=== PATIENT | female | born 1960 | race Caucasian/White ===

== ENCOUNTER 2017-02-01 05:51 | Inpatient (IN) | payer BC ==
[~2017-02-01 05:51] MED LIST: Lactated Ringers 1,000 ML IV SCH; Lidocaine 1%/Sod Bicarbonate in NS 8.4% 1 ML Syringe IV PRN; Sodium Chloride 0.9% 10 ML Syringe FLUSH PRN
[2017-02-01] MEDS ORDERED: Bisacodyl 5 MG Tab PO PRN (06:35)
[2017-02-01] MEDS ORDERED: diphenhydrAMINE 50 MG/ML SDV IVPUSH PRN (06:35)
[2017-02-01] MEDS ORDERED: Magnesium Hydroxide 400 MG/5 ML Susp 30 ML Cup PO PRN (06:35)
[2017-02-01] MEDS ORDERED: Docusate Sodium 100 MG Cap PO PRN (06:35)
[2017-02-01] MEDS ORDERED: Naloxone 0.4 MG/ML SDV IVPUSH PRN (06:35)
[2017-02-01] MEDS ORDERED: Morphine 2 MG/ML Syringe IVPUSH PRN (06:35)
[2017-02-01] MEDS ORDERED: Sennosides 8.6 MG Tab PO PRN (06:35)
[2017-02-01] MEDS ORDERED: Ondansetron 4 MG/2 ML SDV IVPUSH PRN (06:35)
[2017-02-01] MEDS ORDERED: Cyclobenzaprine 10 MG Tab PO PRN (06:35)
[2017-02-01] MEDS ORDERED: EPINEPHrine 1 MG/ML SDV ONE (06:41)
[2017-02-01] MEDS ORDERED: Ropivacaine 0.5% 5 MG/ML 30 ML SDV ONE (06:41)
[2017-02-01] MEDS ORDERED: Propofol 200 MG/20 ML SDV ONE (06:45)
[2017-02-01] MEDS ORDERED: Rocuronium 50 MG/5 ML Vial ONE (06:45)
[2017-02-01] MEDS ORDERED: Ondansetron 4 MG/2 ML SDV ONE (06:45)
[2017-02-01] MEDS ORDERED: Midazolam 1 MG/ML 2 ML SDV ONE (06:45)
[2017-02-01] MEDS ORDERED: ceFAZolin 2 GM in Premix Bag 1 BAG IV SCH (06:45)
[2017-02-01] MEDS ORDERED: fentaNYL 100 MCG/2 ML SDV ONE (06:45)
[2017-02-01] MEDS ORDERED: Lidocaine 1% 4 ML ONE (06:46)
[2017-02-01] MEDS ORDERED: Lidocaine 1% 2 ML ONE (06:49)
[2017-02-01] MEDS ORDERED: ceFAZolin 1 GM Vial ONE (06:49)
--- NOTE | 2017-02-01 07:12 | PCM.PREANE ---
Preanesthetic Assessment - Anesthesia/Transfusion/Family Hx Anesthesia History: Prior Anesthesia Without Reaction Family History of Anesthesia Reaction: No Transfusion History: No Prior Transfusion(s) - Review of Systems General: No Symptoms Pulmonary: No Symptoms Cardiovascular: No Symptoms Gastrointestinal: No Symptoms Neurological: No Symptoms Other: Reports: None - Physical Assessment NPO Status Date: 01/31/17 NPO Status Time: 00:00 Pulse: 51 O2 Sat by Pulse Oximetry: 97 Respiratory Rate: 16 Blood Pressure: 138/66 Temperature: 37.2 C Height: 1.68 m Weight: 74.5 kg ASA Class: 2 Mental Status: Alert & Oriented x3 Airway Class: Mallampati = 1 Dentition: Reports: Normal Dentition Thyro-Mental Finger Breadths: 3 Mouth Opening Finger Breadths: 3 ROM/Head Extension: Full Lungs: Clear to Auscultation, Normal Respiratory Effort Cardiovascular: Regular Rate, Regular Rhythm, No Murmurs - Lab Values: Laboratory Last Values MRSA (PCR) Negative 01/27/17 11:24 - Imaging/EKG Impressions: sinus thomas - Allergies Allergies/Adverse Reactions: Allergies Allergy/AdvReac Type Severity Reaction Status Date / Time acyclovir Allergy Nausea and Verified 01/29/17 15:42 Vomiting - Anesthesia Plan Pre-Op Medication Ordered: None - Acknowledgements Anesthesia Type Planned: General Anesthesia, Regional Block (interscalene block right shoulder for post-op pain control request per Dr. Garcia) Pt an Appropriate Candidate for the Planned Anesthesia: Yes Alternatives and Risks of Anesthesia Discussed w Pt/Guardian: Yes Pt/Guardian Understands and Agrees with Anesthesia Plan: Yes PreAnesthesia Questionnaire HEENT History: Reports: None, Impaired Vision, Other (See Below) Other HEENT History: wears glasses Cardiovascular History: Reports: None Respiratory History: Reports: None Gastrointestinal History: Reports: GERD, Hemorrhoids [employer] History: Reports: Musculoskeletal History: Reports: Other (See Below) Other Musculoskeletal History: hallux rigidus Neurological History: Reports: None Psychiatric History: Reports: None Endocrine/Metabolic History: Reports: None Hematologic History: Reports: None Immunologic History: Reports: None Oncologic (Cancer) History: Reports: None Dermatologic History: Reports: Other (See Below) Other Dermatologic History: cold sores - Past Surgical History Cardiovascular Surgical History: Reports: None Respiratory Surgical History: Reports: None GI Surgical History: Reports: None Female Surgical History: Reports: Endometrial Ablation, Tubal Ligation Male Surgical History: Reports: None Endocrine Surgical History: Reports: None Neurological Surgical History: Reports: None Oncologic Surgical History: Reports: None - SUBSTANCE USE Smoking Status *Q: Former Smoker Tobacco Use Within Last Twelve Months: No Second Hand Smoke Exposure: No Days Per Week of Alcohol Use: 1 Number of Drinks Per Day: 0 Total Drinks Per Week: 0 Recreational Drug Use History: No - HOME MEDS Home Medications: Home Meds Diclofenac Sodium [Voltaren 1% Gel] 1 applic TOP TID PRN 01/29/17 [History] Naproxen Sodium [Aleve] 1 - 2 tab PO BID PRN 01/29/17 [History] - CURRENT (IN HOUSE) MEDS Current Meds: Current Medications Aspirin (Ecotrin) 325 mg PO BID [place]IL[place] Bisacodyl (Dulcolax) 5 mg PO DAILY PRN PRN Reason: Constipation Cyclobenzaprine HCl (Flexeril) 10 mg PO TID PRN PRN Reason: Spasms Diphenhydramine HCl (Benadryl) 25 mg IVPUSH Q4H PRN PRN Reason: Nausea Docusate Sodium (Colace) 100 mg PO BID PRN PRN Reason: Constipation Famotidine (Pepcid) 20 mg PO Q12H [facility] Lactated Ringer's (Ringers, Lactated) 1,000 mls @ 125 mls/hr IV ASDIRECTED [facility] Cefazolin Sodium/Dextrose 2 gm (/ Premix) 50 mls @ 100 mls/hr IV Q8H [facility] Stop: 02/01/17 23:14 Ketorolac Tromethamine (Toradol) 15 mg IVPUSH Q6H PRN PRN Reason: Pain Lidocaine/Sodium Bicarbonate (Buffered Lidocaine 1% In Ns 8.4%) 0.25 ml IV ONETIME PRN PRN Reason: Prior to IV Start Magnesium Hydroxide (Milk Of Magnesia) 30 ml PO BID PRN PRN Reason: Constipation Morphine Sulfate (Morphine) 2 mg IVPUSH Q2H PRN PRN Reason: Breakthrough Pain Naloxone HCl (Narcan) 0.1 mg IVPUSH Q5M PRN PRN Reason: Oversedation Ondansetron HCl (Zofran) 4 mg IVPUSH Q6H PRN PRN Reason: Nausea/Vomiting Oxycodone/Acetaminophen (Percocet 325-5 Mg) 1 - 2 tab PO Q4H PRN PRN Reason: Pain Senna (Senna) 8.6 mg PO BID PRN PRN Reason: Constipation Sodium Chloride (Saline Flush) 10 ml FLUSH ASDIRECTED PRN PRN Reason: Keep Vein Open Discontinued Medications Cefazolin Sodium (Ancef) Confirm Administered Dose 2 gm .ROUTE .STK-MED ONE Stop: 02/01/17 06:50 Epinephrine HCl (Adrenalin 1:1000) Confirm Administered Dose 1 mg .ROUTE .STK- MED ONE Stop: 02/01/17 06:42 Fentanyl (Sublimaze) Confirm Administered Dose 100 mcg .ROUTE .STK-MED ONE Stop: 02/01/17 06:46 Lidocaine HCl (Xylocaine-Mpf 1%) Confirm Administered Dose 4 mls @ as directed .ROUTE .STK-MED ONE Stop: 02/01/17 06:47 Lidocaine HCl (Xylocaine-Mpf 1%) Confirm Administered Dose 2 mls @ as directed .ROUTE .STK-MED ONE Stop: 02/01/17 06:50 Midazolam HCl (Versed 1 Mg/Ml) Confirm Administered Dose 2 mg .ROUTE .STK-MED ONE Stop: 02/01/17 06:46 Ondansetron HCl (Zofran) Confirm Administered Dose 4 mg .ROUTE .STK-MED ONE Stop: 02/01/17 06:46 Propofol (Diprivan 20 Ml) Confirm Administered Dose 200 mg .ROUTE .STK-MED ONE Stop: 02/01/17 06:46 Rocuronium [place] (Zemuron) Confirm Administered Dose 50 mg .ROUTE .STK-MED ONE Stop: 02/01/17 06:46 Ropivacaine (Naropin 0.5%) Confirm Administered Dose 30 ml .ROUTE .STK-MED ONE Stop: 02/01/17 06:42
[2017-02-01] MEDS ORDERED: Triamcinolone Acetonide 40 MG/ML 1 ML MDV ONE (07:26)
[2017-02-01] MEDS ORDERED: Iodine/Sodium Iodide 2% Tincture 30 ML Bottle ONE (07:27)
--- NOTE | 2017-02-01 08:02 | PCM.SN ---
- Free Text/Narrative Note: Note: 02/01/2017 0759 130/78 52 97% 16 Surgeon and pt request post-op pain control for right shoulder surgery risk of block failure, facial numbness, site infection, and chronic pain discussed with pt and agreed to proceed. All standard monitors est. EKG, BP, Pulse Ox, 2L O2 and 2ml versed, 2ml fentanyl pre-op dx. right shoulder arthroplasty post-op dx right reverse total shoulder pt for interscalene block placement all standard monitors est. pt ID time out performed IV sedation 2ml versed, 1ml fentanyl, 2L NC O2, sterile prep and drape of right neck and shoulder U/S placed with visualization of brachial plexus from clavicle to cricoid local skin infiltration 22ga. Stimplex A insulated needle visualized at brachial plexus nerve stimulator at .9 Krystle Amps stop at .4 Krystle Amps with good bicep twitch with 1ml NaCl and lose of twitch neg aspirations every 5ml of 0.5% ropivacaine and 1:200,000 epi total of 30ml injected all done with U/S guidance needle withdrawn no complications noted pt tolerated procedure well block settling in start procedure at 0730 end procedure at 0749 106/59 50 100% 14
[2017-02-01] MEDS ORDERED: diphenhydrAMINE 50 MG/ML SDV ONE (09:05)
[2017-02-01] MEDS ORDERED: Dexamethasone 4 MG/ML SDV ONE (09:39)
[2017-02-01] MEDS ORDERED: Lactated Ringers 1,000 ML ONE ×2 (11:08)
--- NOTE | 2017-02-01 11:14 | PCM.OPNOTE ---
- General Post-Op/Procedure Note Date of Surgery/Procedure: 02/01/17 Operative Procedure(s): revision right reverse total shoulder artrhoplasty Pre Op Diagnosis: rotator cuff insufficiency s/p right total shoulder arthroplasty Post-Op Diagnosis: Same Anesthesia Technique: General ET Tube, Regional Block Primary Surgeon: Mikal Garcia Anesthesia Provider: Anthony Ibarra Fun House Attendant: Alejandra Hernandez Fun House Attendant: Ksenia Maria EBL in mLs: 500 Complications: None Condition: Good Free Text/Narrative:: 36+4 glenosphere size 6 stem small baseplate 135 +3 poly
[2017-02-01] MEDS: Bupivacaine 0.25% 30 ML SDV ONE ×2 (11:29→11:34)
[2017-02-01] MEDS: ceFAZolin 1 GM Vial ONE ×2 (11:30→11:31)
[2017-02-01] MEDS: Vancomycin 1 GM SDV ONE ×2 (11:32→11:33)
[2017-02-01] MEDS ORDERED: fentaNYL 100 MCG/2 ML SDV IVPUSH PRN (11:52)
--- NOTE | 2017-02-01 11:56 | PCM.POSTAN ---
POST ANESTHESIA ASSESSMENT - MENTAL STATUS Mental Status: Somnolent - VITAL SIGNS Pulse Rate: 71 SaO2: 99 Resp Rate: 12 Blood Pressure: 130/71 Temperature: 36.4 C - RESPIRATORY Respiratory Status: Respiratory Rate WNL, Airway Patent, O2 Saturation Stable, Supplemental Oxygen - CARDIOVASCULAR CV Status: Pulse Rate WNL, Blood Pressure Stable - GASTROINTESTINAL GI Status: No Symptoms - PAIN Pain Score: 0 - POST OP HYDRATION Hydration Status: Adequate & Stable - OBSERVATIONS Free Text/Narrative:: no anesthesia complications noted
--- NOTE | 2017-02-01 12:25 | CR ---
Right shoulder: Single fluoroscopic spot views obtained utilizing C-arm device of the right shoulder. Reverse right shoulder prosthesis is seen. Components are aligned. Underlying bony structures are grossly intact. Fluoroscopy time given as 7.2 seconds. Impression: 1. Operative study showing right shoulder prosthesis placement. Diagnostic code #2
--- NOTE | 2017-02-01 12:25 | CR ---
Right shoulder: Single AP view of the right shoulder was obtained utilizing portable technique. Reverse right shoulder prosthesis is seen. Small amount of soft tissue air from the surgical procedure is seen. Underlying bony structures are intact. Impression: 1. Satisfactory radiographic appearance of recently placed right shoulder prosthesis. Diagnostic code #2
[2017-02-01] MEDS: Famotidine 20 MG Tab PO SCH ×2 (14:51→18:33)
[2017-02-01] MEDS: Ketorolac 15 MG/ML SDV IVPUSH PRN ×2 (15:16→23:40)
[2017-02-01] MEDS: ceFAZolin 2 GM in Premix Bag 1 BAG IV SCH (18:33)
--- NOTE | 2017-02-01 19:36 | PCM.CONS ---
H&P History of Present Illness - General Date of Service: 02/01/17 Admit Problem/Dx: Admission Diagnosis/Problem Admission Diagnosis/Problem Pain in shoulder region Source of Information: Patient, Family, Provider, RN, RN Notes Reviewed, Other ( surgical notes ) - History of Present Illness Initial Comments - Free Text/Narative: Tiffani Rogers is a 56 yo female pt. of Dr. Garcia who is post-operative day 0 from reverse right shoulder arthroplasty and left shoulder cortisone injection. Hospital medicine was consulted for post-operative medical management. At this time she is resting comfortably. Pain is controlled although she does report she could use another pain pill as she refused her last one. She denies chest pain, shortness of breath, palpitations, nausea, or vomiting. She caries a history of: GERD and hemorrhoids. She is a former smoker. She is a full code. Her primary care provider is Dr. Coker at [facility] in [place]. Right Shoulder Pain Score (Numeric/FACES): 4 - Related Data Allergies/Adverse Reactions: Allergies Allergy/AdvReac Type Severity Reaction Status Date / Time chlorhexidine Allergy Rash Verified 02/01/17 13:53 amoxicillin [From Augmentin] AdvReac Nausea and Verified 02/01/17 13:53 Vomiting clavulanic acid AdvReac Nausea and Verified 02/01/17 13:53 [From Augmentin] Vomiting Home Medications: Home Meds Diclofenac Sodium [Voltaren 1% Gel] 1 applic TOP TID PRN 01/29/17 [History] Naproxen Sodium [Aleve] 1 - 2 tab PO BID PRN 01/29/17 [History] Past Medical History HEENT History: Reports: None, Impaired Vision, Other (See Below) Other HEENT History: wears glasses Cardiovascular History: Reports: None Respiratory History: Reports: None Gastrointestinal History: Reports: Hemorrhoids Genitourinary History: Reports: None EDGE SAWYER History: Reports: Musculoskeletal History: Reports: Other (See Below) Other Musculoskeletal History: hallux rigidus Neurological History: Reports: None Psychiatric History: Reports: None Endocrine/Metabolic History: Reports: None Hematologic History: Reports: None Immunologic History: Reports: None Oncologic (Cancer) History: Reports: None Dermatologic History: Reports: Other (See Below) Other Dermatologic History: cold sores - Infectious Disease History Infectious Disease History: Reports: None - Past Surgical History Cardiovascular Surgical History: Reports: None Respiratory Surgical History: Reports: None GI Surgical History: Reports: None Female Surgical History: Reports: Endometrial Ablation, Tubal Ligation Endocrine Surgical History: Reports: None Neurological Surgical History: Reports: None Oncologic Surgical History: Reports: None Social & Family History - Tobacco Use Smoking Status *Q: Former Smoker Used Tobacco, but Quit: Yes Month Tobacco Last Used: 1990 Second Hand Smoke Exposure: No - Caffeine Use Caffeine Use: Reports: None - Alcohol Use Days Per Week of Alcohol Use: 1 Number of Drinks Per Day: 0 Total Drinks Per Week: 0 - Recreational Drug Use Recreational Drug Use: No H&P Review of Systems - Review of Systems: Review Of Systems: See Below General: Reports: No Symptoms HEENT: Reports: No Symptoms Pulmonary: Reports: No Symptoms Cardiovascular: Reports: No Symptoms Gastrointestinal: Reports: No Symptoms Genitourinary: Reports: No Symptoms Musculoskeletal: Reports: Shoulder Pain (right ) Skin: Reports: No Symptoms Psychiatric: Reports: No Symptoms Neurological: Reports: No Symptoms Hematologic/Lymphatic: Reports: No Symptoms Immunologic: Reports: No Symptoms Exam - Exam Exam: See Below - Vital Signs Vital Signs: Last Vital Signs Temp 97.6 F 02/01/17 11:56 Pulse 67 02/01/17 14:02 Resp 12 02/01/17 12:30 BP 102/54 L 02/01/17 17:00 Pulse Ox 98 02/01/17 14:27 Weight: 164 lb 3.91 oz - Exam Quality Assessment: DVT Prophylaxis General: Alert, Oriented, Cooperative HEENT: Conjunctiva Clear, EACs Clear, Hearing Intact, Mucosa Moist & [place], Nares Patent, Posterior Pharynx Clear, Pupils Equal, Pupils Reactive Neck: Supple, Trachea Midline. No: JVD Lungs: Clear to Auscultation, Normal Respiratory Effort Cardiovascular: Regular Rate, Regular Rhythm GI/Abdominal Exam: Normal Bowel Sounds, Soft, Non-Tender, No Organomegaly, No Distention, No Abnormal Bruit, No Mass, Pelvis Stable (Female) Exam: Deferred Rectal (Female) Exam: Deferred Back Exam: Normal Inspection, Full Range of Motion Extremities: No Pedal Edema, Normal Capillary Refill, Other (Right shoulder bandaged and sling and swathe in place. ) Peripheral Pulses: 2+: Radial (L), Radial (R), Posterior Tibial (L), Posterior Tibial (R), Dorsalis Pedis (L), Dorsalis Pedis (R) Skin: Warm, Dry, Intact Neurological: Cranial Nerves Intact (grossly ) Neuro Extensive - Mental Status: Alert, Oriented x3, Normal Mood/Affect, Normal Cognition, Memory Intact Neuro Extensive - Motor, Sensory, Reflexes: CN II-XII Intact (grossly ), Normal Gait Psychiatric: Alert, Normal Affect, Normal Mood Physical Exam Comments:: patient examined while lying in bed. - Patient Data Lab Results Last 24 hrs: Laboratory Results - last 24 hr 02/01/17 Range/Units 06:45 Blood Type O POSITIVE Gel Antibody Screen Negative Consult PN Assessment/Plan POD#: 0 Procedures: Procedures DXA BONE DENSITY AXIAL (01/19/17) INJECTION FOR SHOULDER X-RAY (08/21/13) MRI JOINT UPR EXTREM W/DYE (08/21/13) NEEDLE LOCALIZATION BY XRAY (08/21/13) (1) Status post reverse arthroplasty of right shoulder SNOMED Code(s): 220673899 Code(s): Z96.611 - PRESENCE OF RIGHT ARTIFICIAL SHOULDER JOINT Current Visit: Yes (2) Shoulder pain, bilateral SNOMED Code(s): 60920244 Code(s): M25.511 - PAIN IN RIGHT SHOULDER; M25.512 - PAIN IN LEFT SHOULDER Current Visit: Yes Qualifiers: Chronicity: chronic Qualified Code(s): M25.511 - Pain in right shoulder; M25.512 - Pain in left shoulder; M25.512 - Pain in left shoulder; G89.29 - Other chronic pain; G89.29 - Other chronic pain (3) GERD (gastroesophageal reflux disease) SNOMED Code(s): 886205978 Code(s): K21.9 - GASTRO-ESOPHAGEAL REFLUX DISEASE WITHOUT ESOPHAGITIS Current Visit: Yes (4) Hemorrhoids SNOMED Code(s): 53854047 Code(s): K64.9 - UNSPECIFIED HEMORRHOIDS Current Visit: Yes Problem List Initiated/Reviewed/Updated: Yes Plan: I/P: Acute: S/P right reverse total shoulder post-operative day 0 -DVT prophylaxis and pain management per primary team -IS/RT -PT/OT -Vital signs stable S/P left shoulder cortisone injection -Pain management as above Bilateral shoulder pain -Pain management as above Chronic: hemorrhoids GERD Plan: CM/SW for discharge planning Other orders as listed above GI prophylaxis Home medications as indicated Routine AM labs She is a full code. Her PCP is Dr. Coker at [place]. Thank you for allowing us to participate in the care of this patient! Requesting Provider: Dr. Garcia Date Consult Requested: 02/01/17 Reason for Consult: Post -operative medical management Patient History Reviewed: Yes Admission H&P Reviewed: Yes Time Spent (in minutes): 40
[2017-02-01] MEDS: Acetaminophen/oxyCODONE 325-5 MG Tab PO PRN (20:06)
[2017-02-02] MEDS: Acetaminophen/oxyCODONE 325-5 MG Tab PO PRN ×4 (00:18→14:53)
[2017-02-02] MEDS: ceFAZolin 2 GM in Premix Bag 1 BAG IV SCH ×2 (00:22→09:22)
[2017-02-02] MEDS: Famotidine 20 MG Tab PO SCH (06:07)
[2017-02-02] MEDS ORDERED: Aspirin 325 MG Tab.EC PO SCH (09:00)
--- NOTE | 2017-02-02 09:49 | PCM48HPAN ---
Post Anesthesia Note - EVALUATION WITHIN 48HRS OF ANESTHETIC Vital Signs in Normal Range: Yes Patient Participated in Evaluation: Yes Respiratory Function Stable: Yes Airway Patent: Yes Cardiovascular Function Stable: Yes Hydration Status Stable: Yes Pain Control Satisfactory: Yes Nausea and Vomiting Control Satisfactory: Yes Mental Status Recovered: Yes - COMMENTS/OBSERVATIONS Free Text/Narrative:: Tiffani is feeling good today. Shoulder was numb and pain free most of yesterday. She can feel it now. Taking her PO pain medications with good relief. She feels good and is up moving around in her room. No further questions at this time. No complications noted.
--- NOTE | 2017-02-02 15:09 | PCM.CONSN ---
- General Info Date of Service: 02/02/17 Admission Dx/Problem (Free Text): Admission Diagnosis/Problem Admission Diagnosis/Problem Pain in shoulder region Subjective Update: Follow Up Functional Status: Reports: Pain Controlled, Tolerating Diet, Ambulating, Urinating. Denies: New Symptoms - Review of Systems General: Denies: Fever, Weakness, Fatigue, Malaise HEENT: Reports: No Symptoms Pulmonary: Denies: Shortness of Breath Cardiovascular: Denies: Chest Pain Gastrointestinal: Denies: Abdominal Pain, Nausea, Vomiting Genitourinary: Reports: No Symptoms Musculoskeletal: Reports: No Symptoms Skin: Denies: Cyanosis, Pallor, Diaphoresis Neurological: Denies: Pre-Existing Deficit, Difficulty Walking, Weakness, Gait Disturbance Psychiatric: Denies: Depression, Anxiety, Agitation, Hallucinations Systems Review Comment:: No overnight or acute issues. She is doing relatively well. She slept good last night. Pain is controlled. She has no new complaints. - Patient Data Vitals - Most Recent: Last Vital Signs Temp 37.0 C 02/02/17 12:32 Pulse 61 02/02/17 12:32 Resp 16 02/02/17 12:32 BP 117/76 02/02/17 12:32 Pulse Ox 95 02/02/17 12:32 Weight - Most Recent: 75.472 kg I&O - Last 24 Hours: Intake & Output 02/02/17 02/02/17 02/02/17 06:59 14:59 22:59 Intake Total 850 643 Output Total 2400 Balance -1550 643 Lab Results Last 24 Hours: Laboratory Results - last 24 hr 02/02/17 02/02/17 Range/Units 05:30 05:30 WBC 8.14 (3.98-10.04) K/mm3 RBC 3.62 L (3.98-5.22) M/mm3 Hgb 10.5 L (11.2-15.7) gm/L Hct 32.8 L (34.1-44.9) % MCV 90.6 (79.4-94.8) fl MCH 29.0 (25.6-32.2) pg MCHC 32.0 L (32.2-35.5) g/dl RDW Std Deviation 42.5 (36.4-46.3) fL Plt Count 239 (182-369) K/mm3 MPV 9.6 (9.4-12.3) fl Sodium 141 (136-145) mEq/L Potassium 4.2 (3.5-5.1) mEq/L Chloride 107 (98-107) mEq/L Carbon Dioxide 26 (21-32) mEq/L Anion Gap 12.2 (5-15) BUN 23 H (7-18) mg/dL Creatinine 1.0 (0.55-1.02) mg/dL Est Cr Clr Drug Dosing 58.81 mL/min Estimated GFR (MDRD) 57 (>60) mL/min BUN/Creatinine Ratio 23.0 H (14-18) Glucose 115 H (74-106) mg/dL Calcium 8.6 (8.5-10.1) mg/dL Total Bilirubin 0.3 (0.2-1.0) mg/dL AST 24 (15-37) U/L ALT 22 (14-59) U/L Alkaline Phosphatase 55 (46-116) U/L Total Protein 6.1 L (6.4-8.2) g/dl Albumin 2.9 L (3.4-5.0) g/dl Globulin 3.2 gm/dL Albumin/Globulin Ratio 0.9 L (1-2) Med Orders - Current: Current Medications Aspirin (Ecotrin) 325 mg PO BID [facility] Last Admin: 02/02/17 09:22 Dose: 325 mg Bisacodyl (Dulcolax) 5 mg PO DAILY PRN PRN Reason: Constipation Cyclobenzaprine HCl (Flexeril) 10 mg PO TID PRN PRN Reason: Spasms Last Admin: 02/02/17 06:07 Dose: 10 mg Diphenhydramine HCl (Benadryl) 25 mg IVPUSH Q4H PRN PRN Reason: Nausea Docusate Sodium (Colace) 100 mg PO BID PRN PRN Reason: Constipation Famotidine (Pepcid) 20 mg PO Q12H [facility] Last Admin: 02/02/17 06:07 Dose: 20 mg Magnesium Hydroxide (Milk Of Magnesia) 30 ml PO BID PRN PRN Reason: Constipation Morphine Sulfate (Morphine) 2 mg IVPUSH Q2H PRN PRN Reason: Breakthrough Pain Naloxone HCl (Narcan) 0.1 mg IVPUSH Q5M PRN PRN Reason: Oversedation Ondansetron HCl (Zofran) 4 mg IVPUSH Q6H PRN PRN Reason: Nausea/Vomiting Oxycodone/Acetaminophen (Percocet 325-5 Mg) 1 - 2 tab PO Q4H PRN PRN Reason: Pain Last Admin: 02/02/17 14:53 Dose: 2 tab Senna (Senna) 8.6 mg PO BID PRN PRN Reason: Constipation Sodium Chloride (Saline Flush) 10 ml FLUSH ASDIRECTED PRN PRN Reason: Keep Vein Open Discontinued Medications Bupivacaine HCl (Marcaine 0.25%) Confirm Administered Dose 60 ml .ROUTE .STK- MED ONE Stop: 02/01/17 07:28 Last Admin: 02/01/17 11:34 Dose: 60 ml Cefazolin Sodium (Ancef) Confirm Administered Dose 2 gm .ROUTE .STK-MED ONE Stop: 02/01/17 06:50 Cefazolin Sodium (Ancef) Confirm Administered Dose 2 gm .ROUTE .STK-MED ONE Stop: 02/01/17 07:28 Last Admin: 02/01/17 11:31 Dose: 2 gm Dexamethasone (Dexamethasone) Confirm Administered Dose 4 mg .ROUTE .STK-MED ONE Stop: 02/01/17 09:40 Diphenhydramine HCl (Benadryl) Confirm Administered Dose 50 mg .ROUTE .STK-MED ONE Stop: 02/01/17 09:06 Epinephrine HCl (Adrenalin 1:1000) Confirm Administered Dose 1 mg .ROUTE .STK- MED ONE Stop: 02/01/17 06:42 Fentanyl (Sublimaze) Confirm Administered Dose 100 mcg .ROUTE .STK-MED ONE Stop: 02/01/17 06:46 Fentanyl (Sublimaze) 50 mcg IVPUSH Q5M PRN PRN Reason: PAIN Stop: 02/01/17 11:53 Last Admin: 02/01/17 12:08 Dose: 50 mcg Lactated Ringer's (Ringers, Lactated) 1,000 mls @ 125 mls/hr IV ASDIRECTED [facility] Last Admin: 02/01/17 06:45 Dose: 125 mls/hr Lidocaine HCl (Xylocaine-Mpf 1%) Confirm Administered Dose 4 mls @ as directed .ROUTE .STK-MED ONE Stop: 02/01/17 06:47 Cefazolin Sodium/Dextrose 2 gm (/ Premix) 50 mls @ 100 mls/hr IV Q8H [facility] Stop: 02/01/17 23:14 Last Admin: 02/01/17 14:51 Dose: Not Given Lidocaine HCl (Xylocaine-Mpf 1%) Confirm Administered Dose 2 mls @ as directed .ROUTE .STK-MED ONE Stop: 02/01/17 06:50 Lactated Ringer's (Ringers, Lactated) Confirm Administered Dose 1,000 mls @ as directed .ROUTE .STK-MED ONE Stop: 02/01/17 11:09 Lactated Ringer's (Ringers, Lactated) Confirm Administered Dose 1,000 mls @ as directed .ROUTE .STK-MED ONE Stop: 02/01/17 11:09 Cefazolin Sodium/Dextrose 2 gm (/ Premix) 50 mls @ 100 mls/hr IV Q8H [facility] Stop: 02/02/17 09:29 Last Admin: 02/02/17 09:22 Dose: 100 mls/hr Iodine (Iodine 2% Mild Tincture) Confirm Administered Dose 30 ml .ROUTE .STK- MED ONE Stop: 02/01/17 07:28 Last Admin: 02/01/17 11:00 Dose: 18 ml Ketorolac Tromethamine (Toradol) 15 mg IVPUSH Q6H PRN PRN Reason: Pain Last Admin: 02/01/17 23:40 Dose: 15 mg Lidocaine/Sodium Bicarbonate (Buffered Lidocaine 1% In Ns 8.4%) 0.25 ml IV ONETIME PRN PRN Reason: Prior to IV Start Last Admin: 02/01/17 06:45 Dose: 0.25 ml Midazolam HCl (Versed 1 Mg/Ml) Confirm Administered Dose 2 mg .ROUTE .STK-MED ONE Stop: 02/01/17 06:46 Ondansetron HCl (Zofran) Confirm Administered Dose 4 mg .ROUTE .STK-MED ONE Stop: 02/01/17 06:46 Propofol (Diprivan 20 Ml) Confirm Administered Dose 200 mg .ROUTE .STK-MED ONE Stop: 02/01/17 06:46 Rocuronium [place] (Zemuron) Confirm Administered Dose 50 mg .ROUTE .STK-MED ONE Stop: 02/01/17 06:46 Ropivacaine (Naropin 0.5%) Confirm Administered Dose 30 ml .ROUTE .STK-MED ONE Stop: 02/01/17 06:42 Tranexamic Acid (Cyklokapron) Confirm Administered Dose 1,000 mg .ROUTE .STK- MED ONE Stop: 02/01/17 07:27 Last Admin: 02/01/17 11:32 Dose: 1,000 mg Triamcinolone Acetonide (Kenalog-40) Confirm Administered Dose 80 mg .ROUTE .STK -MED ONE Stop: 02/01/17 07:27 Last Admin: 02/01/17 11:34 Dose: 80 mg Vancomycin HCl (Vancomycin) Confirm Administered Dose 1 gm .ROUTE .STK-MED ONE Stop: 02/01/17 07:27 Last Admin: 02/01/17 11:33 Dose: 1 gm - Exam General: Alert, Oriented, Cooperative, No Acute Distress HEENT: Pupils Equal, Pupils Reactive, EOMI, Mucous Membr. Moist/[place] Neck: Supple, Trachea Midline, No Thyromegaly Lungs: Clear to Auscultation, Normal Respiratory Effort Cardiovascular: Regular Rate, Regular Rhythm GI/Abdominal Exam: Normal Bowel Sounds, Non-Tender, No Organomegaly, No Distention, No Abnormal Bruit, No Mass, Pelvis Stable (Female) Exam: Deferred Back Exam: Normal Inspection, Full Range of Motion Extremities: Normal Inspection, Normal Range of Motion, Non-Tender, No Pedal Edema, Normal Capillary Refill, Other (right upper extremity with supportive device) Peripheral Pulses: 2+: Dorsalis Pedis (L), Dorsalis Pedis (R) Skin: Warm, Dry, Intact Wound/Incisions: Healing Well, Dressing Dry and Intact, No Drainage Neurological: No New Focal Deficit Psy/Mental Status: Alert, Normal Affect, Normal Mood Consult PN Assessment/Plan POD#: 1 Procedures: Procedures DXA BONE DENSITY AXIAL (01/19/17) INJECTION FOR SHOULDER X-RAY (08/21/13) MRI JOINT UPR EXTREM W/DYE (08/21/13) NEEDLE LOCALIZATION BY XRAY (08/21/13) Problem List Initiated/Reviewed/Updated: Yes Plan: Assessment/Plan: Acute: S/P Right Reverse Total Shoulder Post-Operative Day 1 - DVT prophylaxis and pain management per primary team - Continue IS/RT/PT/OT - Vital signs stable S/P Left Shoulder Cortisone Injection - Pain management as above Bilateral Shoulder Pain - Pain management as above Chronic: Hemorrhoids GERD Plan: She is clinically stable CM/SW for discharge planning GI prophylaxis Home medications as indicated Routine AM labs From Hospitalist stand point, patient is doing relatively well. We have no additional recommendations but to continue current treatment. We are now signing off her case, please feel free to re-consult us if your still need further help. Again, thank you for allowing us to participate in the management of this patient.
--- NOTE | 2017-02-03 10:32 | PCM.SURGPN ---
- General Info Date of Service: 02/02/17 POD#: 1 Functional Status: Reports: Pain Controlled, Tolerating Diet, Ambulating, Urinating, Incentive Spirometry - Review of Systems Musculoskeletal: Reports: Other (The pt's pain has been controlled and she is prepared for discharge to home.) - Patient Data Vitals - Most Recent: Last Vital Signs Temp 98.6 F 02/02/17 12:32 Pulse 61 02/02/17 12:32 Resp 16 02/02/17 12:32 BP 117/76 02/02/17 12:32 Pulse Ox 95 02/02/17 12:32 Weight - Most Recent: 166 lb 6.2 oz I&O - Last 24 Hours: Intake & Output 02/02/17 02/03/17 02/03/17 22:59 06:59 14:59 Intake Total 800 Output Total 600 Balance 200 Med Orders - Current: Current Medications Discontinued Medications Aspirin (Ecotrin) 325 mg PO BID [facility] Last Admin: 02/02/17 09:22 Dose: 325 mg Bisacodyl (Dulcolax) 5 mg PO DAILY PRN PRN Reason: Constipation Bupivacaine HCl (Marcaine 0.25%) Confirm Administered Dose 60 ml .ROUTE .STK- MED ONE Stop: 02/01/17 07:28 Last Admin: 02/01/17 11:34 Dose: 60 ml Cefazolin Sodium (Ancef) Confirm Administered Dose 2 gm .ROUTE .STK-MED ONE Stop: 02/01/17 06:50 Cefazolin Sodium (Ancef) Confirm Administered Dose 2 gm .ROUTE .STK-MED ONE Stop: 02/01/17 07:28 Last Admin: 02/01/17 11:31 Dose: 2 gm Cyclobenzaprine HCl (Flexeril) 10 mg PO TID PRN PRN Reason: Spasms Last Admin: 02/02/17 06:07 Dose: 10 mg Dexamethasone (Dexamethasone) Confirm Administered Dose 4 mg .ROUTE .STK-MED ONE Stop: 02/01/17 09:40 Diphenhydramine HCl (Benadryl) 25 mg IVPUSH Q4H PRN PRN Reason: Nausea Diphenhydramine HCl (Benadryl) Confirm Administered Dose 50 mg .ROUTE .STK-MED ONE Stop: 02/01/17 09:06 Docusate Sodium (Colace) 100 mg PO BID PRN PRN Reason: Constipation Epinephrine HCl (Adrenalin 1:1000) Confirm Administered Dose 1 mg .ROUTE .STK- MED ONE Stop: 02/01/17 06:42 Famotidine (Pepcid) 20 mg PO Q12H [facility] Last Admin: 02/02/17 06:07 Dose: 20 mg Fentanyl (Sublimaze) Confirm Administered Dose 100 mcg .ROUTE .STK-MED ONE Stop: 02/01/17 06:46 Fentanyl (Sublimaze) 50 mcg IVPUSH Q5M PRN PRN Reason: PAIN Stop: 02/01/17 11:53 Last Admin: 02/01/17 12:08 Dose: 50 mcg Lactated Ringer's (Ringers, Lactated) 1,000 mls @ 125 mls/hr IV ASDIRECTED [facility] Last Admin: 02/01/17 06:45 Dose: 125 mls/hr Lidocaine HCl (Xylocaine-Mpf 1%) Confirm Administered Dose 4 mls @ as directed .ROUTE .STK-MED ONE Stop: 02/01/17 06:47 Cefazolin Sodium/Dextrose 2 gm (/ Premix) 50 mls @ 100 mls/hr IV Q8H [facility] Stop: 02/01/17 23:14 Last Admin: 02/01/17 14:51 Dose: Not Given Lidocaine HCl (Xylocaine-Mpf 1%) Confirm Administered Dose 2 mls @ as directed .ROUTE .STK-MED ONE Stop: 02/01/17 06:50 Lactated Ringer's (Ringers, Lactated) Confirm Administered Dose 1,000 mls @ as directed .ROUTE .STK-MED ONE Stop: 02/01/17 11:09 Lactated Ringer's (Ringers, Lactated) Confirm Administered Dose 1,000 mls @ as directed .ROUTE .STK-MED ONE Stop: 02/01/17 11:09 Cefazolin Sodium/Dextrose 2 gm (/ Premix) 50 mls @ 100 mls/hr IV Q8H [facility] Stop: 02/02/17 09:29 Last Admin: 02/02/17 09:22 Dose: 100 mls/hr Iodine (Iodine 2% Mild Tincture) Confirm Administered Dose 30 ml .ROUTE .STK- MED ONE Stop: 02/01/17 07:28 Last Admin: 02/01/17 11:00 Dose: 18 ml Ketorolac Tromethamine (Toradol) 15 mg IVPUSH Q6H PRN PRN Reason: Pain Last Admin: 02/01/17 23:40 Dose: 15 mg Lidocaine/Sodium Bicarbonate (Buffered Lidocaine 1% In Ns 8.4%) 0.25 ml IV ONETIME PRN PRN Reason: Prior to IV Start Last Admin: 02/01/17 06:45 Dose: 0.25 ml Magnesium Hydroxide (Milk Of Magnesia) 30 ml PO BID PRN PRN Reason: Constipation Midazolam HCl (Versed 1 Mg/Ml) Confirm Administered Dose 2 mg .ROUTE .STK-MED ONE Stop: 02/01/17 06:46 Morphine Sulfate (Morphine) 2 mg IVPUSH Q2H PRN PRN Reason: Breakthrough Pain Naloxone HCl (Narcan) 0.1 mg IVPUSH Q5M PRN PRN Reason: Oversedation Ondansetron HCl (Zofran) Confirm Administered Dose 4 mg .ROUTE .STK-MED ONE Stop: 02/01/17 06:46 Ondansetron HCl (Zofran) 4 mg IVPUSH Q6H PRN PRN Reason: Nausea/Vomiting Oxycodone/Acetaminophen (Percocet 325-5 Mg) 1 - 2 tab PO Q4H PRN PRN Reason: Pain Last Admin: 02/02/17 14:53 Dose: 2 tab Propofol (Diprivan 20 Ml) Confirm Administered Dose 200 mg .ROUTE .STK-MED ONE Stop: 02/01/17 06:46 Rocuronium [place] (Zemuron) Confirm Administered Dose 50 mg .ROUTE .STK-MED ONE Stop: 02/01/17 06:46 Ropivacaine (Naropin 0.5%) Confirm Administered Dose 30 ml .ROUTE .STK-MED ONE Stop: 02/01/17 06:42 Senna (Senna) 8.6 mg PO BID PRN PRN Reason: Constipation Sodium Chloride (Saline Flush) 10 ml FLUSH ASDIRECTED PRN PRN Reason: Keep Vein Open Tranexamic Acid (Cyklokapron) Confirm Administered Dose 1,000 mg .ROUTE .STK- MED ONE Stop: 02/01/17 07:27 Last Admin: 02/01/17 11:32 Dose: 1,000 mg Triamcinolone Acetonide (Kenalog-40) Confirm Administered Dose 80 mg .ROUTE .STK -MED ONE Stop: 02/01/17 07:27 Last Admin: 02/01/17 11:34 Dose: 80 mg Vancomycin HCl (Vancomycin) Confirm Administered Dose 1 gm .ROUTE .STK-MED ONE Stop: 02/01/17 07:27 Last Admin: 02/01/17 11:33 Dose: 1 gm - Exam Wound/Incisions: Dressing Dry and Intact General: Alert, Cooperative, No Acute Distress Lungs: Normal Respiratory Effort Extremities: Other (NVS intact for BUE. Active right elbow, wrist, hand motion noted.) - Problem List Review Problem List Initiated/Reviewed/Updated: Yes - My Orders Last 24 Hours: Active Orders 24 hr Category Date Time Status Ready for Discharge [RC] PER UNIT ROUTINE Care 02/02/17 12:13 Active - Assessment Assessment (Free Text/Narrative):: POD#1 - right TSA converted to reverse TSA - Plan Plan (Free Text/Narrative):: 1. Discharge to home today. 2. Hgb 10.5. 3. Outpatient therapy. 4. 325mg ASA and frequent mobility ordered. Dr. Garcia evaluated the pt today.
--- NOTE | 2017-02-03 10:34 | PCM.DCSUM1 ---
Discharge Summary - Hospital Course Brief History: Tiffani is a 56 yo female who underwent right reverse TSA with Dr. Garcia on 02-01-2017. The procedure was completed under general anesthesia with regional block. The pt tolerated the procedure well and was admitted to the Medical-Surgical Unit. Medical management was provided by the Hospitalist service. The pt's Hospital course was uneventful. The pt's Hgb on POD#1 was 10.5. On POD#1, 325mg ASA was initiated for VTE prophylaxis. SCDs and TEDs were also ordered. A Mepilex dressing was placed at the incision site at the time of surgery and remained clean and dry. The pt participated in P.T. and O.T. and progressed well. On POD#1, the pt was deemed appropriate to discharge to home with her family. - Discharge Data Discharge Date: 02/02/17 Discharge Disposition: Home, Self-Care 01 Condition: Good - Patient Summary/Data Operative Procedure(s) Performed: revision right reverse total shoulder artrhoplasty Consults: Consultations 02/01/17 06:35 Consult to Physician [CONS] Routine OT Evaluation and Treatment [CONS] Routine 02/01/17 06:40 PT Evaluation and Treatment [CONS] Routine - Patient Instructions Diet: Usual Diet as Tolerated Activity: Apply Ice, As Tolerated, Elevate Extremity Activity, Other: No forceful use of surgical arm. Driving: Do Not Drive Showering/Bathing: May Shower Wound/Incision Care: Keep Operative Site/Wound Site Clean and Dry, Do NOT Change Dressing Notify Provider of: Fever, Increased Pain, Swelling and Redness, Drainage, Nausea and/or Vomiting Other/Special Instructions: Please get up and moving around every hour while awake. This helps to prevent blood clots. Please have help with mobility as needed. Please take a 325mg ASPIRIN TWICE DAILY. This also helps to prevent blood clots. The aspirin is being used for blood clot prevention and not for pain management, so please do not miss a dose of the medication. You may schedule for P.T. or O.T. Use the pain medication as needed. The medication may cause drowsiness and constipation. Contact your primary care provider for instructions if you are constipated. You may use a stool softener like docusate sodium or Colace 100mg twice daily and/or a laxative like Miralax daily for constipation. Wear the CHRISTINE hose during the day and you may remove these at night. Place ice to the shoulder often and elevate the limb to decrease swelling. Place a towel between your skin and the blue pad. Call the Clinic with questions or concerns - [phone]. - Discharge Plan Prescriptions/Med Rec: Acetaminophen/oxyCODONE [Percocet 325-5 MG] 1 - 2 tab PO Q6H PRN #60 tablet PRN Reason: Pain Aspirin [Ecotrin] 325 mg PO BID #70 tab.ec Cyclobenzaprine [Flexeril] 10 mg PO Q8H PRN #40 tablet PRN Reason: muscle spasms Home Medications: Home Meds Diclofenac Sodium [Voltaren 1% Gel] 1 applic TOP TID PRN 01/29/17 [History] Acetaminophen/oxyCODONE [Percocet 325-5 MG] 1 - 2 tab PO Q6H PRN #60 tablet [Rx] Aspirin [Ecotrin] 325 mg PO BID #70 tab.ec 02/02/17 [Rx] Cyclobenzaprine [Flexeril] 10 mg PO Q8H PRN #40 tablet 02/02/17 [Rx] Magnesium Hydroxide [Milk of Magnesia] 30 ml PO BID PRN cup 02/02/17 [Rx] Patient Handouts: Shoulder Joint Replacement, Shoulder Joint Replacement, Care After, Aspirin, ASA oral tablets Referrals: Alejandra Hernandez PA-C [[facility]] - (Please see Alejandra Hernandez on Thursday February 09, 2017 at 1:45 PM and on Thursday February 16, 2017 at 3:00 PM.) - Patient Data Vitals - Most Recent: Last Vital Signs Temp 98.6 F 02/02/17 12:32 Pulse 61 02/02/17 12:32 Resp 16 02/02/17 12:32 BP 117/76 02/02/17 12:32 Pulse Ox 95 02/02/17 12:32 Weight - Most Recent: 166 lb 6.2 oz I&O - Last 24 hours: Intake & Output 02/02/17 02/03/17 02/03/17 22:59 06:59 14:59 Intake Total 800 Output Total 600 Balance 200 Med Orders - Current: Current Medications Discontinued Medications Aspirin (Ecotrin) 325 mg PO BID [facility] Last Admin: 02/02/17 09:22 Dose: 325 mg Bisacodyl (Dulcolax) 5 mg PO DAILY PRN PRN Reason: Constipation Bupivacaine HCl (Marcaine 0.25%) Confirm Administered Dose 60 ml .ROUTE .STK- MED ONE Stop: 02/01/17 07:28 Last Admin: 02/01/17 11:34 Dose: 60 ml Cefazolin Sodium (Ancef) Confirm Administered Dose 2 gm .ROUTE .STK-MED ONE Stop: 02/01/17 06:50 Cefazolin Sodium (Ancef) Confirm Administered Dose 2 gm .ROUTE .STK-MED ONE Stop: 02/01/17 07:28 Last Admin: 02/01/17 11:31 Dose: 2 gm Cyclobenzaprine HCl (Flexeril) 10 mg PO TID PRN PRN Reason: Spasms Last Admin: 02/02/17 06:07 Dose: 10 mg Dexamethasone (Dexamethasone) Confirm Administered Dose 4 mg .ROUTE .STK-MED ONE Stop: 02/01/17 09:40 Diphenhydramine HCl (Benadryl) 25 mg IVPUSH Q4H PRN PRN Reason: Nausea Diphenhydramine HCl (Benadryl) Confirm Administered Dose 50 mg .ROUTE .STK-MED ONE Stop: 02/01/17 09:06 Docusate Sodium (Colace) 100 mg PO BID PRN PRN Reason: Constipation Epinephrine HCl (Adrenalin 1:1000) Confirm Administered Dose 1 mg .ROUTE .STK- MED ONE Stop: 02/01/17 06:42 Famotidine (Pepcid) 20 mg PO Q12H [facility] Last Admin: 02/02/17 06:07 Dose: 20 mg Fentanyl (Sublimaze) Confirm Administered Dose 100 mcg .ROUTE .STK-MED ONE Stop: 02/01/17 06:46 Fentanyl (Sublimaze) 50 mcg IVPUSH Q5M PRN PRN Reason: PAIN Stop: 02/01/17 11:53 Last Admin: 02/01/17 12:08 Dose: 50 mcg Lactated Ringer's (Ringers, Lactated) 1,000 mls @ 125 mls/hr IV ASDIRECTED [facility] Last Admin: 02/01/17 06:45 Dose: 125 mls/hr Lidocaine HCl (Xylocaine-Mpf 1%) Confirm Administered Dose 4 mls @ as directed .ROUTE .STK-MED ONE Stop: 02/01/17 06:47 Cefazolin Sodium/Dextrose 2 gm (/ Premix) 50 mls @ 100 mls/hr IV Q8H [facility] Stop: 02/01/17 23:14 Last Admin: 02/01/17 14:51 Dose: Not Given Lidocaine HCl (Xylocaine-Mpf 1%) Confirm Administered Dose 2 mls @ as directed .ROUTE .STK-MED ONE Stop: 02/01/17 06:50 Lactated Ringer's (Ringers, Lactated) Confirm Administered Dose 1,000 mls @ as directed .ROUTE .STK-MED ONE Stop: 02/01/17 11:09 Lactated Ringer's (Ringers, Lactated) Confirm Administered Dose 1,000 mls @ as directed .ROUTE .STK-MED ONE Stop: 02/01/17 11:09 Cefazolin Sodium/Dextrose 2 gm (/ Premix) 50 mls @ 100 mls/hr IV Q8H [facility] Stop: 02/02/17 09:29 Last Admin: 02/02/17 09:22 Dose: 100 mls/hr Iodine (Iodine 2% Mild Tincture) Confirm Administered Dose 30 ml .ROUTE .STK- MED ONE Stop: 02/01/17 07:28 Last Admin: 02/01/17 11:00 Dose: 18 ml Ketorolac Tromethamine (Toradol) 15 mg IVPUSH Q6H PRN PRN Reason: Pain Last Admin: 02/01/17 23:40 Dose: 15 mg Lidocaine/Sodium Bicarbonate (Buffered Lidocaine 1% In Ns 8.4%) 0.25 ml IV ONETIME PRN PRN Reason: Prior to IV Start Last Admin: 02/01/17 06:45 Dose: 0.25 ml Magnesium Hydroxide (Milk Of Magnesia) 30 ml PO BID PRN PRN Reason: Constipation Midazolam HCl (Versed 1 Mg/Ml) Confirm Administered Dose 2 mg .ROUTE .STK-MED ONE Stop: 02/01/17 06:46 Morphine Sulfate (Morphine) 2 mg IVPUSH Q2H PRN PRN Reason: Breakthrough Pain Naloxone HCl (Narcan) 0.1 mg IVPUSH Q5M PRN PRN Reason: Oversedation Ondansetron HCl (Zofran) Confirm Administered Dose 4 mg .ROUTE .STK-MED ONE Stop: 02/01/17 06:46 Ondansetron HCl (Zofran) 4 mg IVPUSH Q6H PRN PRN Reason: Nausea/Vomiting Oxycodone/Acetaminophen (Percocet 325-5 Mg) 1 - 2 tab PO Q4H PRN PRN Reason: Pain Last Admin: 02/02/17 14:53 Dose: 2 tab Propofol (Diprivan 20 Ml) Confirm Administered Dose 200 mg .ROUTE .STK-MED ONE Stop: 02/01/17 06:46 Rocuronium [place] (Zemuron) Confirm Administered Dose 50 mg .ROUTE .STK-MED ONE Stop: 02/01/17 06:46 Ropivacaine (Naropin 0.5%) Confirm Administered Dose 30 ml .ROUTE .STK-MED ONE Stop: 02/01/17 06:42 Senna (Senna) 8.6 mg PO BID PRN PRN Reason: Constipation Sodium Chloride (Saline Flush) 10 ml FLUSH ASDIRECTED PRN PRN Reason: Keep Vein Open Tranexamic Acid (Cyklokapron) Confirm Administered Dose 1,000 mg .ROUTE .STK- MED ONE Stop: 02/01/17 07:27 Last Admin: 02/01/17 11:32 Dose: 1,000 mg Triamcinolone Acetonide (Kenalog-40) Confirm Administered Dose 80 mg .ROUTE .STK -MED ONE Stop: 02/01/17 07:27 Last Admin: 02/01/17 11:34 Dose: 80 mg Vancomycin HCl (Vancomycin) Confirm Administered Dose 1 gm .ROUTE .STK-MED ONE Stop: 02/01/17 07:27 Last Admin: 02/01/17 11:33 Dose: 1 gm *Q Meaningful Use (DIS) - VTE *Q VTE Criteria *Q: - Stroke *Q Stroke Criteria *Q: - AMI *Q AMI Criteria *Q:
--- NOTE | 2017-02-05 13:45 | OR ---
DATE OF OPERATION: 02/01/2017 SURGEON: Mikal Garcia MD OPERATION PERFORMED: Revision of right reverse total shoulder arthroplasty with removal of previous total shoulder arthroplasty. PREOPERATIVE DIAGNOSIS: Right shoulder rotator cuff insufficiency, status post right total shoulder arthroplasty. POSTOPERATIVE DIAGNOSIS: Right shoulder rotator cuff insufficiency, status post right total shoulder arthroplasty. ANESTHESIA: General endotracheal intubation with regional block. ANESTHESIA PROVIDER: Anthony Ibarra CRNA ASSISTANTS: Alejandra Hernandez PA-C and Ksenia Maria LPN. ESTIMATED BLOOD LOSS: 500 mL. COMPLICATIONS: None. CONDITION: Stable. IMPLANTS: 1. Arthrex 36 +4 mm glenosphere. 2. Arthrex size 6 humeral stem. 3. Arthrex small glenoid base plate. 4. Arthrex 135 degrees +3 poly humeral side. DESCRIPTION OF PROCEDURE: The patient was identified in the preop holding area. Proper site was marked and identified by the surgeon. The patient was taken back to the operating theater, where after adequate anesthesia, the patient's right shoulder was sterilely prepped and draped in the usual sterile fashion. OR time-out was performed. The patient received 2 g IV Ancef at this time. Previous incision was utilized. This was taken down to the deltopectoral interval which was identified from previous tag stitches. This was then taken down to the humerus. Subdeltoid adhesions were then taken down along with subacromial adhesions. At this time, the previous biceps tendon interval was identified and this was then opened, a large amount of fluid escaped from the glenohumeral joint as this was being opened up into the rotator interval region. Peel back of the subscapularis tendon was then done and this was tagged for later repair. The previous stitches were removed. It had healed well from the previous repair. At this time, a capsulotomy was also performed and the capsule was taken down around the inferior portion of the humeral head. The humeral component was then fully exposed, retractor was placed. There was noted to be significant rotator cuff tear, especially at the anterior portion of the supra and part of the infraspinatus at this time. At this time, the humeral head component was impacted off. Next, the humeral stem was found to be more secure, so at this time flexible osteotomes were used circumferentially around it and then bone tamp was used to free it up and the humeral stem was removed. There was very little proximal bone loss when this was removed. At this time, attention was turned to the glenoid, a Fukuda retractor was placed posteriorly and Hohmann was used to retract anteriorly, takedown of any remaining labrum and soft tissue was done around the entirety of the glenoid, making sure to protect the axillary nerve inferiorly. At this time, a flexible osteotome was used around the glenoid component, it was a metal-backed glenoid and did have fairly good secure ingrowth. At this time, an osteotome was used for removal of the polyethylene portion of the mono block metal back glenoid, and once this was done, I was able to get a flexible osteotome circumferentially around the metal-backed portion which had good bony ingrowth this was then removed with very little bone loss of the glenoid cavity and no fracture noted. At this time, central guide pin was placed in the glenoid. The central reamer was then used and then a peripheral reamer was used for a small glenoid base plate. At this time, a small glenoid base plate was then impacted into place. A central compression screw was then placed and then the inferior and posterior locking screw were placed. It was found to have a good fixation and adequate coverage of the previous glenoid. At this time, attention was turned back to the humerus starting with a meal room hand, I was able to get a size 6 central reamer. The hand central reamer was then removed and then starting with the broach, I was able to broach up to a size 6 stem which was found to have adequate coverage. The proximal reamer was then used for the portion of the humeral cup. At this time, trial implants were placed with 36+ 4 mm Arthrex glenosphere was impacted into place before this, and then the components were trialed that have full range of motion with no signs of instability with good tension of the deltoid throughout range of motion. At this time, this was reduced the size 6 humeral stem along with a +3 were then constructed on the back table with 135 degrees angle and then these were impacted into place in the humerus. The patient's shoulder was reduced. 1 L dilute Betadine solution was irrigated through the shoulder along 3 L of pulse lavage irrigation with Ancef. A periarticular injection was then completed. At this time, #2 FiberWire was then placed through the subscapularis tendon were brought through the Arthrex stem and then tied over each other. A pants-over- vest fashion for repair of the subscapularis tendon. The deltopectoral interval was then tagged using #2 FiberWire, 2-0 Vicryl was used subcutaneously, and Prineo was used for the skin. The patient tolerated the procedure well and sent to PACU in stable condition. MMODAL /[id number]
== END 2017-02-02 15:00 | disposition home or self-care (01) | DRG 320 ==
LOC: JD.MS 05:51
PROVIDERS: ADMIT Orthopaedic Surgery; ATTEND Orthopaedic Surgery
PROC: 0RPJ0JZ Removal of Synthetic Substitute from Right Shoulder Joint, Open Approach (ICD-10-PCS; principal; 2017-02-01)
DX: M75.01 Adhesive capsulitis of right shoulder (principal); Z96.611 Presence of right artificial shoulder joint; H54.7 Unspecified visual loss; Z87.891 Personal history of nicotine dependence; Z88.1 Allergy status to other antibiotic agents; Z88.8 Allergy status to other drugs, medicaments and biological substances
CPT/HCPCS: 01638; 36415; 64415; 73020-26-RT; 73020-RT; 76000; 76000-26; 80053; 85027; 86850; 86900; 86901; 87641; 97110-GP; 97161-GP; 97165-GO; 97535-GO; A9270-GY; C1713; C1776; J0171; J0690; J1100; J1200; J1885; J2250; J2405; J2704; J2795; J3010; J3301; J3370; J3490; J7120

== ENCOUNTER 2017-07-05 08:00 | Inpatient (IN) | payer BC ==
[~2017-07-05 08:00] MED LIST changes: -Lactated Ringers 1,000 ML IV SCH; +Lidocaine 1%/Sod Bicarbonate in NS 8.4% 1 ML Syringe IDERM PRN; -Lidocaine 1%/Sod Bicarbonate in NS 8.4% 1 ML Syringe IV PRN; +Morphine 4 MG/ML Syringe IVPUSH PRN
[2017-07-05] MEDS ORDERED: Propofol 200 MG/20 ML SDV ONE (09:12)
[2017-07-05] MEDS ORDERED: fentaNYL 100 MCG/2 ML SDV ONE ×2 (09:13→14:20)
[2017-07-05] MEDS ORDERED: Midazolam 1 MG/ML 2 ML SDV ONE (09:13)
[2017-07-05] MEDS ORDERED: Lidocaine 1% 4 ML ONE (09:16)
[2017-07-05] MEDS ORDERED: Ondansetron 4 MG/2 ML SDV IVPUSH PRN ×3 (11:00→14:39)
[2017-07-05] MEDS ORDERED: Ketorolac 15 MG/ML SDV IVPUSH PRN (11:00)
[2017-07-05] MEDS ORDERED: Sennosides 8.6 MG Tab PO PRN (11:00)
[2017-07-05] MEDS ORDERED: Bisacodyl 5 MG Tab PO PRN (11:00)
[2017-07-05] MEDS ORDERED: Cyclobenzaprine 10 MG Tab PO PRN (11:00)
[2017-07-05] MEDS ORDERED: Naloxone 0.4 MG/ML SDV IVPUSH PRN (11:00)
[2017-07-05] MEDS ORDERED: Magnesium Hydroxide 400 MG/5 ML Susp 30 ML Cup PO PRN (11:00)
[2017-07-05] MEDS ORDERED: EPINEPHrine 1 MG/ML SDV ONE (11:03)
[2017-07-05] MEDS ORDERED: Ropivacaine 0.5% 5 MG/ML 30 ML SDV ONE (11:03)
[2017-07-05] MEDS: Lactated Ringers 1,000 ML IV SCH ×2 (11:20→13:12)
--- NOTE | 2017-07-05 11:30 | PCM.POSTAN ---
POST ANESTHESIA ASSESSMENT - MENTAL STATUS Mental Status: Alert - VITAL SIGNS Pulse Rate: 90 SaO2: 93 Resp Rate: 16 Blood Pressure: 122/88 Temperature: 37.3 C - RESPIRATORY Respiratory Status: Respiratory Rate WNL, Airway Patent, O2 Saturation Stable - CARDIOVASCULAR CV Status: Pulse Rate WNL, Blood Pressure Stable - GASTROINTESTINAL GI Status: No Symptoms - PAIN Pain Score: 0 - POST OP HYDRATION Hydration Status: Adequate & Stable
[2017-07-05] MEDS ORDERED: diphenhydrAMINE 50 MG/ML SDV IVPUSH PRN ×2 (11:31→14:39)
[2017-07-05] MEDS ORDERED: fentaNYL 100 MCG/2 ML SDV IVPUSH PRN ×2 (11:31→14:39)
[2017-07-05] MEDS ORDERED: Meperidine PF 50 MG/ML Syringe IVPUSH PRN (11:31)
[2017-07-05] MEDS ORDERED: oxyCODONE ER 10 MG TAB.ER PO SCH (11:45)
[2017-07-05] MEDS ORDERED: Pregabalin 25 MG Cap PO SCH (11:45)
[2017-07-05] MEDS ORDERED: Rocuronium 50 MG/5 ML Vial ONE (11:55)
[2017-07-05] MEDS ORDERED: HYDROmorphone 0.5 MG/0.5 ML Syringe IVPUSH ONE (13:00)
--- NOTE | 2017-07-05 13:18 | PCM.PREANE ---
Preanesthetic Assessment - Procedure Proposed Procedure: Left Total Shoulder Arthroplasty - Anesthesia/Transfusion/Family Hx Anesthesia History: Prior Anesthesia Reaction Type of Anesthesia Reaction: Excessive Nausea/Vomiting Family History of Anesthesia Reaction: No Transfusion History: No Prior Transfusion(s) Intubation History: Unknown - Review of Systems General: No Symptoms Pulmonary: Cough Cardiovascular: No Symptoms Gastrointestinal: No Symptoms Neurological: No Symptoms Other: Reports: None - Physical Assessment NPO Status Date: 07/05/17 NPO Status Time: 02:30 Pulse: 90 O2 Sat by Pulse Oximetry: 93 Respiratory Rate: 16 Blood Pressure: 122/88 Temperature: 37.3 C Vital Signs: Last Vital Signs Temp 37.3 C 07/05/17 11:30 Pulse 90 07/05/17 11:30 Resp 16 07/05/17 11:30 BP 122/88 07/05/17 11:30 Pulse Ox 93 L 07/05/17 11:30 Height: 1.66 m Weight: 74.843 kg ASA Class: 2 Mental Status: Alert & Oriented x3 Airway Class: Mallampati = 2 Dentition: Reports: Normal Dentition Thyro-Mental Finger Breadths: 2 Mouth Opening Finger Breadths: 5 ROM/Head Extension: Full Lungs: Clear to Auscultation, Normal Respiratory Effort Cardiovascular: Regular Rate, Regular Rhythm - Lab Values: Laboratory Last Values MRSA (PCR) Negative 06/22/17 10:20 - Allergies Allergies/Adverse Reactions: Allergies Allergy/AdvReac Type Severity Reaction Status Date / Time chlorhexidine Allergy Rash Verified 07/05/17 11:51 amoxicillin [From Augmentin] AdvReac Nausea and Verified 07/05/17 11:51 Vomiting clavulanic acid AdvReac Nausea and Verified 07/05/17 11:51 [From Augmentin] Vomiting - Blood Blood Available: No - Acknowledgements Anesthesia Type Planned: General Anesthesia (with interscalene block ) Pt an Appropriate Candidate for the Planned Anesthesia: Yes Alternatives and Risks of Anesthesia Discussed w Pt/Guardian: Yes Pt/Guardian Understands and Agrees with Anesthesia Plan: Yes PreAnesthesia Questionnaire HEENT History: Reports: None, Impaired Vision, Other (See Below) Other HEENT History: wears glasses Cardiovascular History: Reports: None Respiratory History: Reports: None Gastrointestinal History: Reports: Hemorrhoids Genitourinary History: Reports: None [employer] History: Reports: Musculoskeletal History: Reports: Other (See Below) Other Musculoskeletal History: hallux rigidus Neurological History: Reports: None Psychiatric History: Reports: None Endocrine/Metabolic History: Reports: None Hematologic History: Reports: None Immunologic History: Reports: None Oncologic (Cancer) History: Reports: None Dermatologic History: Reports: Other (See Below) Other Dermatologic History: cold sores - Infectious Disease History Infectious Disease History: Reports: None - Past Surgical History Head Surgeries/Procedures: Reports: None Cardiovascular Surgical History: Reports: None Respiratory Surgical History: Reports: None GI Surgical History: Reports: None Female Surgical History: Reports: Endometrial Ablation, Tubal Ligation Male Surgical History: Reports: None Endocrine Surgical History: Reports: None Neurological Surgical History: Reports: None Musculoskeletal Surgical History: Reports: Shoulder Replacement Other Musculoskeletal Surgeries/Procedures:: Right total shoulder replacement Oncologic Surgical History: Reports: None - SUBSTANCE USE Smoking Status *Q: Former Smoker Tobacco Use Within Last Twelve Months: No Second Hand Smoke Exposure: No Days Per Week of Alcohol Use: 1 Number of Drinks Per Day: 0 Total Drinks Per Week: 0 Recreational Drug Use History: No - HOME MEDS Home Medications: Home Meds Acyclovir [Zovirax] 400 mg PO ASDIRECTED PRN 07/02/17 [History] Cholecalciferol (Vitamin D3) [Vitamin D3] 5,000 unit PO DAILY 07/02/17 [History] Multivits,Ca,Minerals/Iron/FA [Women's Daily Formula Caplet] 1 tab PO DAILY [History] Naproxen Sodium [Aleve] 1 - 2 tab PO BID PRN 07/02/17 [History] - CURRENT (IN HOUSE) MEDS Current Meds: Current Medications Aspirin (Ecotrin) 325 mg PO BID WILBER Bisacodyl (Dulcolax) 5 mg PO DAILY PRN PRN Reason: Constipation Cyclobenzaprine HCl (Flexeril) 10 mg PO TID PRN PRN Reason: Spasms Diphenhydramine HCl (Benadryl) 25 mg IVPUSH Q6H PRN PRN Reason: pruritis Stop: 07/05/17 14:00 Docusate Sodium (Colace) 100 mg PO BID WILBER Famotidine (Pepcid) 20 mg PO BID WILBER Fentanyl (Sublimaze) 50 mcg IVPUSH Q5M PRN PRN Reason: Pain Stop: 07/05/17 14:00 Lactated Ringer's (Ringers, Lactated) 1,000 mls @ 125 mls/hr IV ASDIRECTED WILBER Stop: 07/05/17 23:00 Last Admin: 07/05/17 11:20 Dose: 125 mls/hr Cefazolin Sodium/Dextrose 2 gm (/ Premix) 50 mls @ 100 mls/hr IV Q8H [facility] Stop: 07/05/17 23:44 Ketorolac Tromethamine (Toradol) 15 mg IVPUSH Q6H PRN PRN Reason: Pain Lidocaine/Sodium Bicarbonate (Buffered Lidocaine 1% In Ns 8.4%) 0.25 ml IDERM ONETIME PRN PRN Reason: Prior to IV Start Stop: 07/05/17 18:00 Last Admin: 07/05/17 11:20 Dose: 0.25 ml Magnesium Hydroxide (Milk Of Magnesia) 30 ml PO BID PRN PRN Reason: Constipation Meperidine HCl (Demerol) 12.5 mg IVPUSH ONETIME PRN PRN Reason: shivering Stop: 07/05/17 14:00 Morphine Sulfate (Morphine) 2 mg IVPUSH Q2H PRN PRN Reason: Breakthrough Pain Naloxone HCl (Narcan) 0.1 mg IVPUSH Q5M PRN PRN Reason: Oversedation Ondansetron HCl (Zofran) 4 mg IVPUSH Q6H PRN PRN Reason: Nausea/Vomiting Ondansetron HCl (Zofran) 4 mg IVPUSH ONETIME PRN PRN Reason: Nausea/Vomiting Stop: 07/05/17 14:00 Oxycodone/Acetaminophen (Percocet 325-5 Mg) 1 - 2 tab PO Q4H PRN PRN Reason: Pain Senna (Senna) 8.6 mg PO BID PRN PRN Reason: Constipation Sodium Chloride (Saline Flush) 10 ml FLUSH ASDIRECTED PRN PRN Reason: Keep Vein Open Stop: 07/05/17 18:00 Discontinued Medications Bupivacaine HCl (Marcaine 0.25%) Confirm Administered Dose 30 ml .ROUTE .STK- MED ONE Stop: 07/05/17 11:21 Cefazolin Sodium (Ancef) Confirm Administered Dose 2 gm .ROUTE .STK-MED ONE Stop: 07/05/17 11:20 Epinephrine HCl (Adrenalin) Confirm Administered Dose 1 mg .ROUTE .STK-MED ONE Stop: 07/05/17 11:04 Fentanyl (Sublimaze) Confirm Administered Dose 100 mcg .ROUTE .STK-MED ONE Stop: 07/05/17 09:14 Hydromorphone HCl (Dilaudid) 0.5 mg IVPUSH ONETIME ONE Stop: 07/05/17 13:01 Lidocaine HCl (Xylocaine-Mpf 1%) Confirm Administered Dose 4 mls @ as directed .ROUTE .STK-MED ONE Stop: 07/05/17 09:17 Acetaminophen (Ofirmev) 100 mls @ 400 mls/hr IV ONETIME ONE Stop: 07/05/17 12:14 Last Admin: 07/05/17 11:58 Dose: 400 mls/hr Iodine (Iodine 2% Mild Tincture) Confirm Administered Dose 30 ml .ROUTE .STK- MED ONE Stop: 07/05/17 11:20 Midazolam HCl (Versed 1 Mg/Ml) Confirm Administered Dose 2 mg .ROUTE .STK-MED ONE Stop: 07/05/17 09:14 Oxycodone HCl (Oxycontin) 10 mg PO ONETIME WILBER Stop: 07/05/17 13:00 Last Admin: 07/05/17 11:57 Dose: 10 mg Pregabalin (Lyrica) 50 mg PO ONETIME WILBER Stop: 07/05/17 13:00 Last Admin: 07/05/17 11:58 Dose: 50 mg Propofol (Diprivan 20 Ml) Confirm Administered Dose 200 mg .ROUTE .STK-MED ONE Stop: 07/05/17 09:13 Rocuronium Calimesa (Zemuron) Confirm Administered Dose 50 mg .ROUTE .STK-MED ONE Stop: 07/05/17 11:56 Ropivacaine (Naropin 0.5%) Confirm Administered Dose 30 ml .ROUTE .STK-MED ONE Stop: 07/05/17 11:04 Tranexamic Acid (Cyklokapron) Confirm Administered Dose 1,000 mg .ROUTE .STK- MED ONE Stop: 07/05/17 11:20 Vancomycin HCl (Vancomycin) Confirm Administered Dose 1 gm .ROUTE .STK-MED ONE Stop: 07/05/17 11:20
--- NOTE | 2017-07-05 14:45 | PCM.SN ---
- Free Text/Narrative Note: Left interscalene nerve block Date: 07/05/2017 Start: 1333 Time Out: 1333 Stop: 1340 Surgical Procedure: Left total shoulder replacement Diagnosis: Left shoulder osteoarthritis Current Procedure: Left interscalene block under US guidance for postoperative pain control Patient chart reviewed, risk/benefits discussed with patient, consent obtained. Patient positioned supine, monitors/alarms on, oxygen placed via nasal cannula at 2 LPM. IV sedation administered: Versed 2mg IV Fentanyl 50 mcg IV Left shoulder prepped with chloraprep x1. Sterile drapes placed with aseptic technique. Under US guidance, left subclavian artery visualized along with the brachial plexus. Plexus followed cephalad up to C6 cricoid level, and area localized with 2mls of 1% lidocaine. 22gauge 2 inch stimiplex needle inserted under US and guided to brachial plexus C5-C6 trunks with 0.44mV with stimulation of biceps/wrist noted. Stimulation abolished at 0.2mVs. 1ml of Normal Saline injected with loss of stimulation up to 0.7mA. Incremental injection of 5mls with negative aspiration prior to each injection of 0.5% ropivacaine with 1:200,000 epinephrine. Total volume=30mls. Refer to nurses notes for vital signs. David Arevalo CRNA
[2017-07-05] MEDS ORDERED: Ketorolac 30 MG/ML SDV ONE (14:49)
[2017-07-05] MEDS ORDERED: Dexamethasone 4 MG/ML SDV ONE (14:49)
[2017-07-05] MEDS ORDERED: ceFAZolin 1 GM Vial ONE (14:49)
[2017-07-05] MEDS: Bupivacaine 0.25% 30 ML SDV ONE ×2 (15:03→16:02)
[2017-07-05] MEDS: Iodine/Sodium Iodide 2% Tincture 30 ML Bottle ONE ×2 (15:04→15:57)
[2017-07-05] MEDS: ceFAZolin 1 GM Vial ONE ×3 (15:04→15:58)
[2017-07-05] MEDS: Vancomycin 1 GM SDV ONE ×2 (15:05→16:03)
[2017-07-05] MEDS ORDERED: Lactated Ringers 1,000 ML ONE (15:08)
[2017-07-05] MEDS ORDERED: ePHEDrine 50 MG/ML SDV ONE (15:14)
[2017-07-05] MEDS ORDERED: Neostigmine Methylsulfate 10 MG/10 ML MDV ONE (15:17)
[2017-07-05] MEDS ORDERED: Glycopyrrolate 0.2 MG/ML SDV ONE (15:17)
[2017-07-05] MEDS ORDERED: ACYCLOVIR 400 MG PO PRN (16:26)
--- NOTE | 2017-07-05 16:53 | PCM.POSTAN ---
POST ANESTHESIA ASSESSMENT - MENTAL STATUS Mental Status: Alert - VITAL SIGNS Pulse Rate: 73 SaO2: 99 Resp Rate: 16 Blood Pressure: 141/83 Temperature: 36.8 C - RESPIRATORY Respiratory Status: Respiratory Rate WNL, Airway Patent, O2 Saturation Stable - CARDIOVASCULAR CV Status: Pulse Rate WNL, Blood Pressure Stable - GASTROINTESTINAL GI Status: No Symptoms - PAIN Pain Score: 0 - POST OP HYDRATION Hydration Status: Adequate & Stable
--- NOTE | 2017-07-05 18:11 | CR ---
Left shoulder: Two fluoroscopic spot views were obtained utilizing C-arm device. Study shows placement of left shoulder prosthesis. Fluoroscopy time given as 3.0 seconds. Impression: 1. Operative study as noted above. Diagnostic code #2
[2017-07-05] MEDS: Docusate Sodium 100 MG Cap PO SCH ×2 (22:19→22:34)
[2017-07-05] MEDS: Famotidine 20 MG Tab PO SCH (22:19)
[2017-07-05] MEDS: ceFAZolin 2 GM in Premix Bag 1 BAG IV SCH (22:19)
[2017-07-05] MEDS: Acetaminophen/oxyCODONE 325-5 MG Tab PO PRN (22:19)
[2017-07-06] MEDS: Docusate Sodium 100 MG Cap PO SCH (08:48)
[2017-07-06] MEDS: Famotidine 20 MG Tab PO SCH (08:48)
[2017-07-06] MEDS ORDERED: Cholecalciferol (Vitamin D3) 1,000 Unit Tab PO SCH (09:00)
[2017-07-06] MEDS ORDERED: Multivitamins,Therapeutic Tab PO SCH (09:00)
[2017-07-06] MEDS ORDERED: Aspirin 325 MG Tab.EC PO SCH (09:00)
--- NOTE | 2017-07-06 09:37 | PCM48HPAN ---
Post Anesthesia Note - EVALUATION WITHIN 48HRS OF ANESTHETIC Vital Signs in Normal Range: Yes Patient Participated in Evaluation: Yes Respiratory Function Stable: Yes Airway Patent: Yes Cardiovascular Function Stable: Yes Hydration Status Stable: Yes Pain Control Satisfactory: Yes Nausea and Vomiting Control Satisfactory: Yes Mental Status Recovered: Yes (States no pain or nausea. Pleased) Pulse Rate: 53 Resp Rate: 15 Temperature: 97.9 F Blood Pressure: 105/57
[2017-07-06] MEDS: ceFAZolin 2 GM in Premix Bag 1 BAG IV SCH ×2 (09:52→14:04)
--- NOTE | 2017-07-06 10:33 | PCM.CONSN ---
- General Info Date of Service: 07/06/17 Admission Dx/Problem (Free Text): POD #1 Total shoulder arthroplasty Doing well, no nausea, voiding. Plans for DC home today. Functional Status: Reports: Pain Controlled, Tolerating Diet, Ambulating, Urinating, Incentive Spirometry. Denies: New Symptoms - Review of Systems General: Reports: No Symptoms HEENT: Reports: No Symptoms Pulmonary: Reports: No Symptoms Cardiovascular: Reports: No Symptoms Gastrointestinal: Reports: No Symptoms Genitourinary: Reports: No Symptoms Musculoskeletal: Reports: Shoulder Pain, Arm Pain Skin: Reports: No Symptoms Neurological: Reports: No Symptoms Psychiatric: Reports: No Symptoms - Patient Data Vitals - Most Recent: Last Vital Signs Temp 97.9 F 07/06/17 09:36 Pulse 53 L 07/06/17 09:36 Resp 15 07/06/17 09:36 BP 105/57 L 07/06/17 09:36 Pulse Ox 96 07/06/17 08:17 Weight - Most Recent: 165 lb I&O - Last 24 Hours: Intake & Output 07/05/17 07/06/17 07/06/17 22:59 06:59 14:59 Intake Total 440 Balance 440 Lab Results Last 24 Hours: Laboratory Results - last 24 hr 07/06/17 07/06/17 Range/Units 06:22 06:22 WBC 8.30 (3.98-10.04) K/mm3 RBC 3.68 L (3.98-5.22) M/mm3 Hgb 11.3 (11.2-15.7) gm/L Hct 34.3 (34.1-44.9) % MCV 93.2 (79.4-94.8) fl MCH 30.7 (25.6-32.2) pg MCHC 32.9 (32.2-35.5) g/dl RDW Std Deviation 45.7 (36.4-46.3) fL Plt Count 231 (182-369) K/mm3 MPV 9.4 (9.4-12.3) fl Sodium 142 (136-145) mEq/L Potassium 4.0 (3.5-5.1) mEq/L Chloride 107 (98-107) mEq/L Carbon Dioxide 27 (21-32) mEq/L Anion Gap 12.0 (5-15) BUN 13 (7-18) mg/dL Creatinine 1.1 H (0.55-1.02) mg/dL Est Cr Clr Drug Dosing 51.80 mL/min Estimated GFR (MDRD) 51 (>60) mL/min BUN/Creatinine Ratio 11.8 L (14-18) Glucose 112 H (74-106) mg/dL Calcium 8.7 (8.5-10.1) mg/dL Total Bilirubin 0.3 (0.2-1.0) mg/dL AST 25 (15-37) U/L ALT 27 (14-59) U/L Alkaline Phosphatase 65 (46-116) U/L Total Protein 6.2 L (6.4-8.2) g/dl Albumin 3.3 L (3.4-5.0) g/dl Globulin 2.9 gm/dL Albumin/Globulin Ratio 1.1 (1-2) Med Orders - Current: Current Medications Aspirin (Ecotrin) 325 mg PO BID [facility] Last Admin: 07/06/17 08:47 Dose: 325 mg Bisacodyl (Dulcolax) 5 mg PO DAILY PRN PRN Reason: Constipation Cholecalciferol (Vitamin D3) 5,000 units PO DAILY [facility] Last Admin: 07/06/17 08:47 Dose: 5,000 units Cyclobenzaprine HCl (Flexeril) 10 mg PO TID PRN PRN Reason: Spasms Docusate Sodium (Colace) 100 mg PO BID [facility] Last Admin: 07/06/17 08:48 Dose: 100 mg Famotidine (Pepcid) 20 mg PO BID [facility] Last Admin: 07/06/17 08:48 Dose: 20 mg Cefazolin Sodium/Dextrose 2 gm (/ Premix) 50 mls @ 100 mls/hr IV Q8H [facility] Stop: 07/06/17 15:29 Last Admin: 07/06/17 09:52 Dose: Not Given Ketorolac Tromethamine (Toradol) 15 mg IVPUSH Q6H PRN PRN Reason: Pain Last Admin: 07/05/17 22:20 Dose: 15 mg Magnesium Hydroxide (Milk Of Magnesia) 30 ml PO BID PRN PRN Reason: Constipation Morphine Sulfate (Morphine) 2 mg IVPUSH Q2H PRN PRN Reason: Breakthrough Pain Multivitamins (Thera) 1 each PO DAILY [facility] Last Admin: 07/06/17 08:47 Dose: 1 each Naloxone HCl (Narcan) 0.1 mg IVPUSH Q5M PRN PRN Reason: Oversedation Ondansetron HCl (Zofran) 4 mg IVPUSH Q6H PRN PRN Reason: Nausea/Vomiting Oxycodone/Acetaminophen (Percocet 325-5 Mg) 1 - 2 tab PO Q4H PRN PRN Reason: Pain Last Admin: 07/05/17 22:19 Dose: 2 tab Senna (Senna) 8.6 mg PO BID PRN PRN Reason: Constipation Discontinued Medications Bupivacaine HCl (Marcaine 0.25%) Confirm Administered Dose 30 ml .ROUTE .STK- MED ONE Stop: 07/05/17 11:21 Last Admin: 07/05/17 16:02 Dose: 30 ml Cefazolin Sodium (Ancef) Confirm Administered Dose 2 gm .ROUTE .STK-MED ONE Stop: 07/05/17 11:20 Last Admin: 07/05/17 15:58 Dose: 2 gm Cefazolin Sodium (Ancef) Confirm Administered Dose 2 gm .ROUTE .STK-MED ONE Stop: 07/05/17 14:50 Dexamethasone (Dexamethasone) Confirm Administered Dose 4 mg .ROUTE .STK-MED ONE Stop: 07/05/17 14:50 Diphenhydramine HCl (Benadryl) 25 mg IVPUSH Q6H PRN PRN Reason: pruritis Stop: 07/05/17 14:00 Diphenhydramine HCl (Benadryl) 25 mg IVPUSH Q6H PRN PRN Reason: pruritis Stop: 07/05/17 17:00 Ephedrine Sulfate (Ephedrine Sulfate) Confirm Administered Dose 50 mg .ROUTE .STK-MED ONE Stop: 07/05/17 15:15 Epinephrine HCl (Adrenalin) Confirm Administered Dose 1 mg .ROUTE .STK-MED ONE Stop: 07/05/17 11:04 Fentanyl (Sublimaze) Confirm Administered Dose 100 mcg .ROUTE .STK-MED ONE Stop: 07/05/17 09:14 Fentanyl (Sublimaze) 50 mcg IVPUSH Q5M PRN PRN Reason: Pain Stop: 07/05/17 14:00 Fentanyl (Sublimaze) Confirm Administered Dose 100 mcg .ROUTE .STK-MED ONE Stop: 07/05/17 14:21 Fentanyl (Sublimaze) 50 mcg IVPUSH Q5M PRN PRN Reason: Pain Stop: 07/05/17 17:00 Glycopyrrolate (Robinul) Confirm Administered Dose 0.6 mg .ROUTE .STK-MED ONE Stop: 07/05/17 15:18 Hydromorphone HCl (Dilaudid) 0.5 mg IVPUSH ONETIME ONE Stop: 07/05/17 13:01 Last Admin: 07/05/17 19:58 Dose: Not Given Lactated Ringer's (Ringers, Lactated) 1,000 mls @ 125 mls/hr IV ASDIRECTED [facility] Stop: 07/05/17 23:00 Last Admin: 07/05/17 13:12 Dose: 125 mls/hr Lidocaine HCl (Xylocaine-Mpf 1%) Confirm Administered Dose 4 mls @ as directed .ROUTE .STK-MED ONE Stop: 07/05/17 09:17 Acetaminophen (Ofirmev) 100 mls @ 400 mls/hr IV ONETIME ONE Stop: 07/05/17 12:14 Last Admin: 07/05/17 11:58 Dose: 400 mls/hr Lactated Ringer's (Ringers, Lactated) Confirm Administered Dose 1,000 mls @ as directed .ROUTE .STK-MED ONE Stop: 07/05/17 15:09 Iodine (Iodine 2% Mild Tincture) Confirm Administered Dose 30 ml .ROUTE .STK- MED ONE Stop: 07/05/17 11:20 Last Admin: 07/05/17 15:57 Dose: 30 ml Ketorolac Tromethamine (Toradol) Confirm Administered Dose 30 mg .ROUTE .STK- MED ONE Stop: 07/05/17 14:50 Lidocaine/Sodium Bicarbonate (Buffered Lidocaine 1% In Ns 8.4%) 0.25 ml IDERM ONETIME PRN PRN Reason: Prior to IV Start Stop: 07/05/17 18:00 Last Admin: 07/05/17 11:20 Dose: 0.25 ml Meperidine HCl (Demerol) 12.5 mg IVPUSH ONETIME PRN PRN Reason: shivering Stop: 07/05/17 14:00 Midazolam HCl (Versed 1 Mg/Ml) Confirm Administered Dose 2 mg .ROUTE .STK-MED ONE Stop: 07/05/17 09:14 Neostigmine Methylsulfate (Neostigmine Methylsulfate) Confirm Administered Dose 10 mg .ROUTE .STK-MED ONE Stop: 07/05/17 15:18 Non-Formulary Medication (Acyclovir) 400 mg PO ASDIRECTED PRN PRN Reason: cold sores Ondansetron HCl (Zofran) 4 mg IVPUSH ONETIME PRN PRN Reason: Nausea/Vomiting Stop: 07/05/17 14:00 Ondansetron HCl (Zofran) 4 mg IVPUSH ONETIME PRN PRN Reason: Nausea/Vomiting Stop: 07/05/17 17:00 Oxycodone HCl (Oxycontin) 10 mg PO ONETIME [facility] Stop: 07/05/17 13:00 Last Admin: 07/05/17 11:57 Dose: 10 mg Pregabalin (Lyrica) 50 mg PO ONETIME [facility] Stop: 07/05/17 13:00 Last Admin: 07/05/17 11:58 Dose: 50 mg Propofol (Diprivan 20 Ml) Confirm Administered Dose 200 mg .ROUTE .STK-MED ONE Stop: 07/05/17 09:13 Rocuronium [place] (Zemuron) Confirm Administered Dose 50 mg .ROUTE .STK-MED ONE Stop: 07/05/17 11:56 Ropivacaine (Naropin 0.5%) Confirm Administered Dose 30 ml .ROUTE .STK-MED ONE Stop: 07/05/17 11:04 Sodium Chloride (Saline Flush) 10 ml FLUSH ASDIRECTED PRN PRN Reason: Keep Vein Open Stop: 07/05/17 18:00 Tranexamic Acid (Cyklokapron) Confirm Administered Dose 1,000 mg .ROUTE .STK- MED ONE Stop: 07/05/17 11:20 Last Admin: 07/05/17 16:04 Dose: 1,000 mg Vancomycin HCl (Vancomycin) Confirm Administered Dose 1 gm .ROUTE .STK-MED ONE Stop: 07/05/17 11:20 Last Admin: 07/05/17 16:03 Dose: 1 gm - Exam Quality Assessment: DVT Prophylaxis General: Alert, Oriented, Cooperative, No Acute Distress HEENT: Pupils Equal, EOMI, Mucous Membr. Moist/[place] Neck: Supple Lungs: Clear to Auscultation, Normal Respiratory Effort, Decreased Breath Sounds Cardiovascular: Regular Rate, Regular Rhythm GI/Abdominal Exam: Normal Bowel Sounds, Soft, Non-Tender (Female) Exam: Deferred Back Exam: Normal Inspection Extremities: Normal Capillary Refill, Other (shoulder immobilizer ) Peripheral Pulses: 2+: Radial (L), Radial (R), Dorsalis Pedis (L), Dorsalis Pedis (R) Neurological: No New Focal Deficit Psy/Mental Status: Alert, Normal Affect, Normal Mood Consult PN Assessment/Plan POD#: 1 Procedures: Procedures DXA BONE DENSITY AXIAL (01/19/17) INJECTION FOR SHOULDER X-RAY (08/21/13) MRI JOINT UPR EXTREM W/DYE (08/21/13) NEEDLE LOCALIZATION BY XRAY (08/21/13) (1) Status post reverse arthroplasty of right shoulder SNOMED Code(s): 882199056, 579186645 Code(s): Z96.611 - PRESENCE OF RIGHT ARTIFICIAL SHOULDER JOINT Priority: High (2) Shoulder pain, bilateral SNOMED Code(s): 33396460 Code(s): M25.511 - PAIN IN RIGHT SHOULDER; M25.512 - PAIN IN LEFT SHOULDER Priority: High Qualifiers: Chronicity: chronic Qualified Code(s): M25.511 - Pain in right shoulder; M25.512 - Pain in left shoulder; M25.512 - Pain in left shoulder; G89.29 - Other chronic pain; G89.29 - Other chronic pain Problem List Initiated/Reviewed/Updated: Yes My Orders Last 24 Hours: My Active Orders 07/06/17 10:28 Ready for Discharge [RC] PER UNIT ROUTINE Plan: POD #1 Reverse total shoulder arthroplasty -Pain management and DVT prohylax per Ortho/primary team -PT/OT -RT/IS- on RA this morning -VSS, labs stable Other: GI prophylax CM for assist with DC planning--plans DC home today. Is doing very well and OK for DC home from Hospitalist standpoint; will be relayed to primary team. Patient is Full code status.
[2017-07-06] MEDS: Acetaminophen/oxyCODONE 325-5 MG Tab PO PRN (12:33)
--- NOTE | 2017-07-12 09:17 | PCM.SURGPN ---
- General Info Date of Service: 07/06/17 POD#: 1 Functional Status: Reports: Pain Controlled, Tolerating Diet, Ambulating, Urinating, Incentive Spirometry. Denies: New Symptoms - Review of Systems Musculoskeletal: Reports: Other (The pt states her pain is controlled and she feels prepared for discharge to home.) - Patient Data Vitals - Most Recent: Last Vital Signs Temp 98.8 F 07/06/17 11:23 Pulse 51 L 07/06/17 11:23 Resp 12 07/06/17 11:23 BP 94/46 L 07/06/17 11:23 Pulse Ox 96 07/06/17 11:23 Weight - Most Recent: 165 lb Med Orders - Current: Current Medications Discontinued Medications Aspirin (Ecotrin) 325 mg PO BID [facility] Last Admin: 07/06/17 08:47 Dose: 325 mg Bisacodyl (Dulcolax) 5 mg PO DAILY PRN PRN Reason: Constipation Bupivacaine HCl (Marcaine 0.25%) Confirm Administered Dose 30 ml .ROUTE .STK- MED ONE Stop: 07/05/17 11:21 Last Admin: 07/05/17 16:02 Dose: 30 ml Cefazolin Sodium (Ancef) Confirm Administered Dose 2 gm .ROUTE .STK-MED ONE Stop: 07/05/17 11:20 Last Admin: 07/05/17 15:58 Dose: 2 gm Cefazolin Sodium (Ancef) Confirm Administered Dose 2 gm .ROUTE .STK-MED ONE Stop: 07/05/17 14:50 Cholecalciferol (Vitamin D3) 5,000 units PO DAILY [facility] Last Admin: 07/06/17 08:47 Dose: 5,000 units Cyclobenzaprine HCl (Flexeril) 10 mg PO TID PRN PRN Reason: Spasms Dexamethasone (Dexamethasone) Confirm Administered Dose 4 mg .ROUTE .STK-MED ONE Stop: 07/05/17 14:50 Diphenhydramine HCl (Benadryl) 25 mg IVPUSH Q6H PRN PRN Reason: pruritis Stop: 07/05/17 14:00 Diphenhydramine HCl (Benadryl) 25 mg IVPUSH Q6H PRN PRN Reason: pruritis Stop: 07/05/17 17:00 Docusate Sodium (Colace) 100 mg PO BID [facility] Last Admin: 07/06/17 08:48 Dose: 100 mg Ephedrine Sulfate (Ephedrine Sulfate) Confirm Administered Dose 50 mg .ROUTE .STK-MED ONE Stop: 07/05/17 15:15 Epinephrine HCl (Adrenalin) Confirm Administered Dose 1 mg .ROUTE .STK-MED ONE Stop: 07/05/17 11:04 Famotidine (Pepcid) 20 mg PO BID [facility] Last Admin: 07/06/17 08:48 Dose: 20 mg Fentanyl (Sublimaze) Confirm Administered Dose 100 mcg .ROUTE .STK-MED ONE Stop: 07/05/17 09:14 Fentanyl (Sublimaze) 50 mcg IVPUSH Q5M PRN PRN Reason: Pain Stop: 07/05/17 14:00 Fentanyl (Sublimaze) Confirm Administered Dose 100 mcg .ROUTE .STK-MED ONE Stop: 07/05/17 14:21 Fentanyl (Sublimaze) 50 mcg IVPUSH Q5M PRN PRN Reason: Pain Stop: 07/05/17 17:00 Glycopyrrolate (Robinul) Confirm Administered Dose 0.6 mg .ROUTE .STK-MED ONE Stop: 07/05/17 15:18 Hydromorphone HCl (Dilaudid) 0.5 mg IVPUSH ONETIME ONE Stop: 07/05/17 13:01 Last Admin: 07/05/17 19:58 Dose: Not Given Lactated Ringer's (Ringers, Lactated) 1,000 mls @ 125 mls/hr IV ASDIRECTED [facility] Stop: 07/05/17 23:00 Last Admin: 07/05/17 13:12 Dose: 125 mls/hr Cefazolin Sodium/Dextrose 2 gm (/ Premix) 50 mls @ 100 mls/hr IV Q8H [facility] Stop: 07/06/17 15:29 Last Admin: 07/06/17 14:04 Dose: 100 mls/hr Lidocaine HCl (Xylocaine-Mpf 1%) Confirm Administered Dose 4 mls @ as directed .ROUTE .STK-MED ONE Stop: 07/05/17 09:17 Acetaminophen (Ofirmev) 100 mls @ 400 mls/hr IV ONETIME ONE Stop: 07/05/17 12:14 Last Admin: 07/05/17 11:58 Dose: 400 mls/hr Lactated Ringer's (Ringers, Lactated) Confirm Administered Dose 1,000 mls @ as directed .ROUTE .STK-MED ONE Stop: 07/05/17 15:09 Iodine (Iodine 2% Mild Tincture) Confirm Administered Dose 30 ml .ROUTE .STK- MED ONE Stop: 07/05/17 11:20 Last Admin: 07/05/17 15:57 Dose: 30 ml Ketorolac Tromethamine (Toradol) 15 mg IVPUSH Q6H PRN PRN Reason: Pain Last Admin: 07/05/17 22:20 Dose: 15 mg Ketorolac Tromethamine (Toradol) Confirm Administered Dose 30 mg .ROUTE .STK- MED ONE Stop: 07/05/17 14:50 Lidocaine/Sodium Bicarbonate (Buffered Lidocaine 1% In Ns 8.4%) 0.25 ml IDERM ONETIME PRN PRN Reason: Prior to IV Start Stop: 07/05/17 18:00 Last Admin: 07/05/17 11:20 Dose: 0.25 ml Magnesium Hydroxide (Milk Of Magnesia) 30 ml PO BID PRN PRN Reason: Constipation Meperidine HCl (Demerol) 12.5 mg IVPUSH ONETIME PRN PRN Reason: shivering Stop: 07/05/17 14:00 Midazolam HCl (Versed 1 Mg/Ml) Confirm Administered Dose 2 mg .ROUTE .STK-MED ONE Stop: 07/05/17 09:14 Morphine Sulfate (Morphine) 2 mg IVPUSH Q2H PRN PRN Reason: Breakthrough Pain Multivitamins (Thera) 1 each PO DAILY [facility] Last Admin: 07/06/17 08:47 Dose: 1 each Naloxone HCl (Narcan) 0.1 mg IVPUSH Q5M PRN PRN Reason: Oversedation Neostigmine Methylsulfate (Neostigmine Methylsulfate) Confirm Administered Dose 10 mg .ROUTE .STK-MED ONE Stop: 07/05/17 15:18 Non-Formulary Medication (Acyclovir) 400 mg PO ASDIRECTED PRN PRN Reason: cold sores Ondansetron HCl (Zofran) 4 mg IVPUSH Q6H PRN PRN Reason: Nausea/Vomiting Ondansetron HCl (Zofran) 4 mg IVPUSH ONETIME PRN PRN Reason: Nausea/Vomiting Stop: 07/05/17 14:00 Ondansetron HCl (Zofran) 4 mg IVPUSH ONETIME PRN PRN Reason: Nausea/Vomiting Stop: 07/05/17 17:00 Oxycodone HCl (Oxycontin) 10 mg PO ONETIME [facility] Stop: 07/05/17 13:00 Last Admin: 07/05/17 11:57 Dose: 10 mg Oxycodone/Acetaminophen (Percocet 325-5 Mg) 1 - 2 tab PO Q4H PRN PRN Reason: Pain Last Admin: 07/06/17 12:33 Dose: 2 tab Pregabalin (Lyrica) 50 mg PO ONETIME [facility] Stop: 07/05/17 13:00 Last Admin: 07/05/17 11:58 Dose: 50 mg Propofol (Diprivan 20 Ml) Confirm Administered Dose 200 mg .ROUTE .STK-MED ONE Stop: 07/05/17 09:13 Rocuronium [place] (Zemuron) Confirm Administered Dose 50 mg .ROUTE .STK-MED ONE Stop: 07/05/17 11:56 Ropivacaine (Naropin 0.5%) Confirm Administered Dose 30 ml .ROUTE .STK-MED ONE Stop: 07/05/17 11:04 Senna (Senna) 8.6 mg PO BID PRN PRN Reason: Constipation Sodium Chloride (Saline Flush) 10 ml FLUSH ASDIRECTED PRN PRN Reason: Keep Vein Open Stop: 07/05/17 18:00 Tranexamic Acid (Cyklokapron) Confirm Administered Dose 1,000 mg .ROUTE .STK- MED ONE Stop: 07/05/17 11:20 Last Admin: 07/05/17 16:04 Dose: 1,000 mg Vancomycin HCl (Vancomycin) Confirm Administered Dose 1 gm .ROUTE .STK-MED ONE Stop: 07/05/17 11:20 Last Admin: 07/05/17 16:03 Dose: 1 gm - Exam Wound/Incisions: Dressing Dry and Intact General: Alert, Cooperative, No Acute Distress Lungs: Normal Respiratory Effort Extremities: Other (NVS intact for BUE. Active left elbow, wrist, hand motion noted.) - Problem List Review Problem List Initiated/Reviewed/Updated: Yes - Assessment Assessment (Free Text/Narrative):: POD#1 - left reverse TSA - Plan Plan (Free Text/Narrative):: 1. Hgb 11.3. 2. Discharge to home today. 3. Outpatient therapy. 4. ASA, frequent mobility and TEDs for VTE prophylaxis. The pt's case was discussed with Dr. Garcia.
--- NOTE | 2017-07-12 09:20 | PCM.DCSUM1 ---
Discharge Summary - Hospital Course Brief History: Tiffani is a 57 yo female who underwent left reverse TSA with Dr. Garcia on 07-05-2017. The procedure was completed under general anesthesia with regional block. The pt tolerated the procedure well and was admitted to the Medical-Surgical Unit. The pt received antibiotic lauro-operatively. She participated in P.T. and O.T. and progressed well. The pt's surgical wound was dressed with a Mepilex dressing and remained clean and dry. On POD#1, the pt was started on 325mg ASA for VTE prophylaxis. The pt used TEDs and SCDs also. On POD#1, the pt's hemoglobin was 11.3. Medical management was provided by the Hospitalist service and the pt's hospital course was uneventful. On POD#1, the pt was deemed appropriate for discharge to home with family. - Discharge Data Discharge Date: 07/06/17 Discharge Disposition: Home, Self-Care 01 Condition: Good - Patient Summary/Data Consults: Consultations 07/05/17 07:10 Consult to Physician [CONS] Routine OT Evaluation and Treatment [CONS] Routine PT Evaluation and Treatment [CONS] Routine - Patient Instructions Diet: Usual Diet as Tolerated Activity: Apply Ice, As Tolerated, Elevate Extremity Driving: Do Not Drive Showering/Bathing: May Shower Wound/Incision Care: Keep Operative Site/Wound Site Clean and Dry, Do NOT Change Dressing Notify Provider of: Fever, Increased Pain, Swelling and Redness, Drainage, Nausea and/or Vomiting Other/Special Instructions: Please get up and moving around every hour while awake. This helps to prevent blood clots. Please take a 325mg aspirin daily. This also helps to prevent blood clots. The aspirin is not being used for pain management, but rather for blood clot prevention so please try not to miss a dose of the medication. Please wear the immobilizer as directed. You may schedule for physical therapy or occupational therapy. The therapist will use the [facility] reverse total shoulder arthroplasty protocol. Place ice to the limb often. Have a towel between the blue ice pad and your skin. Keep the Mepilex dressing in place until follow-up at the Clinic. You may use the pain medication as needed. The medication may cause drowsiness and/or constipation. Please contact your primary care provider for instructions if you are constipated. Please call the Clinic with other concerns - [phone]. - Discharge Plan Prescriptions/Med Rec: Acetaminophen/oxyCODONE [Percocet 325-5 MG] 1 - 2 tab PO Q6H PRN #60 tablet PRN Reason: Pain Aspirin [Ecotrin] 325 mg PO DAILY #42 tab.ec Cyclobenzaprine [Flexeril] 10 mg PO TID PRN #40 tablet PRN Reason: Spasms Home Medications: Home Meds Acyclovir [Zovirax] 400 mg PO ASDIRECTED PRN 07/02/17 [History] Cholecalciferol (Vitamin D3) [Vitamin D3] 5,000 unit PO DAILY 07/02/17 [History] Multivits,Ca,Minerals/Iron/FA [Women's Daily Formula Caplet] 1 tab PO DAILY [History] Acetaminophen/oxyCODONE [Percocet 325-5 MG] 1 - 2 tab PO Q6H PRN #60 tablet [Rx] Aspirin [Ecotrin] 325 mg PO DAILY #42 tab.ec 07/05/17 [Rx] Bisacodyl [Dulcolax] 5 mg PO DAILY PRN tablet 07/05/17 [Rx] Cyclobenzaprine [Flexeril] 10 mg PO TID PRN #40 tablet 07/05/17 [Rx] Docusate Sodium [Colace] 100 mg PO BID cap 07/05/17 [Rx] Famotidine [Pepcid] 20 mg PO BID tablet 07/05/17 [Rx] Magnesium Hydroxide [Milk of Magnesia] 30 ml PO BID PRN cup 07/05/17 [Rx] Sennosides [Senna] 8.6 mg PO BID PRN tablet 07/05/17 [Rx] Patient Handouts: Reverse Total Shoulder Replacement, Care After Referrals: Alejandra Hernandez PA-C [Physician Speech Language Pathology Assistant] - 07/13/17 9:30 am (Please follow up with Alejandra on WednesdayJuly 13 at 9:30 am and on WednesdayJuly 20 at 9:30 am ) Margoth Parker MD [Physician] - 07/15/17 3:30 pm (Please follow up with Margoth Cardona on July 15 at 3:30 pm. Check in at 3:15 pm.) - Patient Data Vitals - Most Recent: Last Vital Signs Temp 98.8 F 07/06/17 11:23 Pulse 51 L 07/06/17 11:23 Resp 12 07/06/17 11:23 BP 94/46 L 07/06/17 11:23 Pulse Ox 96 07/06/17 11:23 Weight - Most Recent: 165 lb Med Orders - Current: Current Medications Discontinued Medications Aspirin (Ecotrin) 325 mg PO BID [facility] Last Admin: 07/06/17 08:47 Dose: 325 mg Bisacodyl (Dulcolax) 5 mg PO DAILY PRN PRN Reason: Constipation Bupivacaine HCl (Marcaine 0.25%) Confirm Administered Dose 30 ml .ROUTE .STK- MED ONE Stop: 07/05/17 11:21 Last Admin: 07/05/17 16:02 Dose: 30 ml Cefazolin Sodium (Ancef) Confirm Administered Dose 2 gm .ROUTE .STK-MED ONE Stop: 07/05/17 11:20 Last Admin: 07/05/17 15:58 Dose: 2 gm Cefazolin Sodium (Ancef) Confirm Administered Dose 2 gm .ROUTE .STK-MED ONE Stop: 07/05/17 14:50 Cholecalciferol (Vitamin D3) 5,000 units PO DAILY [facility] Last Admin: 07/06/17 08:47 Dose: 5,000 units Cyclobenzaprine HCl (Flexeril) 10 mg PO TID PRN PRN Reason: Spasms Dexamethasone (Dexamethasone) Confirm Administered Dose 4 mg .ROUTE .STK-MED ONE Stop: 07/05/17 14:50 Diphenhydramine HCl (Benadryl) 25 mg IVPUSH Q6H PRN PRN Reason: pruritis Stop: 07/05/17 14:00 Diphenhydramine HCl (Benadryl) 25 mg IVPUSH Q6H PRN PRN Reason: pruritis Stop: 07/05/17 17:00 Docusate Sodium (Colace) 100 mg PO BID [facility] Last Admin: 07/06/17 08:48 Dose: 100 mg Ephedrine Sulfate (Ephedrine Sulfate) Confirm Administered Dose 50 mg .ROUTE .STK-MED ONE Stop: 07/05/17 15:15 Epinephrine HCl (Adrenalin) Confirm Administered Dose 1 mg .ROUTE .STK-MED ONE Stop: 07/05/17 11:04 Famotidine (Pepcid) 20 mg PO BID [facility] Last Admin: 07/06/17 08:48 Dose: 20 mg Fentanyl (Sublimaze) Confirm Administered Dose 100 mcg .ROUTE .STK-MED ONE Stop: 07/05/17 09:14 Fentanyl (Sublimaze) 50 mcg IVPUSH Q5M PRN PRN Reason: Pain Stop: 07/05/17 14:00 Fentanyl (Sublimaze) Confirm Administered Dose 100 mcg .ROUTE .STK-MED ONE Stop: 07/05/17 14:21 Fentanyl (Sublimaze) 50 mcg IVPUSH Q5M PRN PRN Reason: Pain Stop: 07/05/17 17:00 Glycopyrrolate (Robinul) Confirm Administered Dose 0.6 mg .ROUTE .STK-MED ONE Stop: 07/05/17 15:18 Hydromorphone HCl (Dilaudid) 0.5 mg IVPUSH ONETIME ONE Stop: 07/05/17 13:01 Last Admin: 07/05/17 19:58 Dose: Not Given Lactated Ringer's (Ringers, Lactated) 1,000 mls @ 125 mls/hr IV ASDIRECTED [facility] Stop: 07/05/17 23:00 Last Admin: 07/05/17 13:12 Dose: 125 mls/hr Cefazolin Sodium/Dextrose 2 gm (/ Premix) 50 mls @ 100 mls/hr IV Q8H [facility] Stop: 07/06/17 15:29 Last Admin: 07/06/17 14:04 Dose: 100 mls/hr Lidocaine HCl (Xylocaine-Mpf 1%) Confirm Administered Dose 4 mls @ as directed .ROUTE .STK-MED ONE Stop: 07/05/17 09:17 Acetaminophen (Ofirmev) 100 mls @ 400 mls/hr IV ONETIME ONE Stop: 07/05/17 12:14 Last Admin: 07/05/17 11:58 Dose: 400 mls/hr Lactated Ringer's (Ringers, Lactated) Confirm Administered Dose 1,000 mls @ as directed .ROUTE .STK-MED ONE Stop: 07/05/17 15:09 Iodine (Iodine 2% Mild Tincture) Confirm Administered Dose 30 ml .ROUTE .STK- MED ONE Stop: 07/05/17 11:20 Last Admin: 07/05/17 15:57 Dose: 30 ml Ketorolac Tromethamine (Toradol) 15 mg IVPUSH Q6H PRN PRN Reason: Pain Last Admin: 07/05/17 22:20 Dose: 15 mg Ketorolac Tromethamine (Toradol) Confirm Administered Dose 30 mg .ROUTE .STK- MED ONE Stop: 07/05/17 14:50 Lidocaine/Sodium Bicarbonate (Buffered Lidocaine 1% In Ns 8.4%) 0.25 ml IDERM ONETIME PRN PRN Reason: Prior to IV Start Stop: 07/05/17 18:00 Last Admin: 07/05/17 11:20 Dose: 0.25 ml Magnesium Hydroxide (Milk Of Magnesia) 30 ml PO BID PRN PRN Reason: Constipation Meperidine HCl (Demerol) 12.5 mg IVPUSH ONETIME PRN PRN Reason: shivering Stop: 07/05/17 14:00 Midazolam HCl (Versed 1 Mg/Ml) Confirm Administered Dose 2 mg .ROUTE .STK-MED ONE Stop: 07/05/17 09:14 Morphine Sulfate (Morphine) 2 mg IVPUSH Q2H PRN PRN Reason: Breakthrough Pain Multivitamins (Thera) 1 each PO DAILY [facility] Last Admin: 07/06/17 08:47 Dose: 1 each Naloxone HCl (Narcan) 0.1 mg IVPUSH Q5M PRN PRN Reason: Oversedation Neostigmine Methylsulfate (Neostigmine Methylsulfate) Confirm Administered Dose 10 mg .ROUTE .STK-MED ONE Stop: 07/05/17 15:18 Non-Formulary Medication (Acyclovir) 400 mg PO ASDIRECTED PRN PRN Reason: cold sores Ondansetron HCl (Zofran) 4 mg IVPUSH Q6H PRN PRN Reason: Nausea/Vomiting Ondansetron HCl (Zofran) 4 mg IVPUSH ONETIME PRN PRN Reason: Nausea/Vomiting Stop: 07/05/17 14:00 Ondansetron HCl (Zofran) 4 mg IVPUSH ONETIME PRN PRN Reason: Nausea/Vomiting Stop: 07/05/17 17:00 Oxycodone HCl (Oxycontin) 10 mg PO ONETIME [facility] Stop: 07/05/17 13:00 Last Admin: 07/05/17 11:57 Dose: 10 mg Oxycodone/Acetaminophen (Percocet 325-5 Mg) 1 - 2 tab PO Q4H PRN PRN Reason: Pain Last Admin: 07/06/17 12:33 Dose: 2 tab Pregabalin (Lyrica) 50 mg PO ONETIME [facility] Stop: 07/05/17 13:00 Last Admin: 07/05/17 11:58 Dose: 50 mg Propofol (Diprivan 20 Ml) Confirm Administered Dose 200 mg .ROUTE .STK-MED ONE Stop: 07/05/17 09:13 Rocuronium [place] (Zemuron) Confirm Administered Dose 50 mg .ROUTE .STK-MED ONE Stop: 07/05/17 11:56 Ropivacaine (Naropin 0.5%) Confirm Administered Dose 30 ml .ROUTE .STK-MED ONE Stop: 07/05/17 11:04 Senna (Senna) 8.6 mg PO BID PRN PRN Reason: Constipation Sodium Chloride (Saline Flush) 10 ml FLUSH ASDIRECTED PRN PRN Reason: Keep Vein Open Stop: 07/05/17 18:00 Tranexamic Acid (Cyklokapron) Confirm Administered Dose 1,000 mg .ROUTE .STK- MED ONE Stop: 07/05/17 11:20 Last Admin: 07/05/17 16:04 Dose: 1,000 mg Vancomycin HCl (Vancomycin) Confirm Administered Dose 1 gm .ROUTE .STK-MED ONE Stop: 07/05/17 11:20 Last Admin: 07/05/17 16:03 Dose: 1 gm
--- NOTE | 2017-07-12 17:26 | PCM.OPNOTE ---
- General Post-Op/Procedure Note Date of Surgery/Procedure: 07/05/17 Operative Procedure(s): left reverse total shoulder arthroplasty Pre Op Diagnosis: left glenohumeral arthrosis Post-Op Diagnosis: Same Anesthesia Technique: General ET Tube, Regional Block Primary Surgeon: Mikal Garcia Anesthesia Provider: Sandy Benjamin Manager Cosmetics: Alejandra Hernandez Manager Cosmetics: Ksenia Maria EBL in mLs: 350 Complications: None Condition: Good Free Text/Narrative:: size 8 stem small baseplate
--- NOTE | 2017-07-13 00:09 | OR ---
DATE OF OPERATION: 07/05/2017 SURGEON: Mikal Garcia MD OPERATION PERFORMED: Left reverse total shoulder arthroplasty. PREOPERATIVE DIAGNOSIS: Left glenohumeral arthrosis. POSTOPERATIVE DIAGNOSIS: Left glenohumeral arthrosis. ANESTHESIA: General endotracheal intubation with regional interscalene block. ANESTHESIOLOGIST: Sandy Benjamin. ASSISTANTS: Alejandra Hernandez PA-C and Ksenia Maria LPN. ESTIMATED BLOOD LOSS: 350 mL. COMPLICATIONS: None. CONDITION: Stable. IMPLANTS: 1. Arthrex size small glenoid baseplate. 2. Arthrex size 36+ 4 Glenosphere. 3. Arthrex size 8 humeral stem with 135 degree angle and 3 mm polyethylene insert. DESCRIPTION OF PROCEDURE: The patient was identified in the preop holding area. Proper site was marked and identified by the surgeon. The patient was taken back to the operating theater where after adequate anesthesia patient's left upper extremity was sterilely prepped and draped in the usual sterile fashion. OR time-out was performed. The patient received 2 g of IV Ancef. At this time, standard deltopectoral incision was made. The cephalic vein was identified. Deltopectoral interval was then identified. The clavipectoral fascia was then incised. The conjoined tendon was then retracted medially and the subdeltoid space was defined as well as the subacromial space. A coude retractor was then placed in the subdeltoid space. Biceps tendon and interval was then identified. Before this, the anterior humeral circumflex vessels were then ligated using 0 Vicryl stick tie. The biceps tendon was identified. Subpectoral tenodesis was then performed. An opening of the bicipital groove was done all the way back to the level of the glenoid, making sure not to get into the CA ligament. At this time, the biceps tendon was thus resected. Attention was turned to the subscapularis. At this time, the patient was noted to have significant fraying as well as peel-back as well as significant decrease in volume of her subscapularis tendon and there was barely any tendon left to try to repair after doing a peel back. At this time, it did have significant issues with possible repair of this secondary to the paucity of tissue for repair. At this time, the humerus was dislocated and the rotator cuff was inspected. The supraspinatus was noted to have significant delamination as well as some fatty infiltration of the tendon near its insertional point, and the infraspinatus and teres minor looked good. At this time, it was decided we would do a reverse total shoulder arthroplasty after counseling the patient before this as well and that she wanted that primarily done and I told her if it was only indicated. At this time, a guide pin was placed down the canal. Starter awl was placed. The neck cut was completed by hand in roughly 30 degrees of retroversion. Attention was turned to the glenoid, posterior and anterior retractors were then placed. The removal of the labrum was then done circumferentially and the capsule was removed as well. At this time, guide pin was placed center to center in the glenoid and the central hole was reamed. Once this was completed, the small glenoid baseplate was impacted into place. The central compression screw was then placed and an inferior and superior locking screw was then placed in divergent fashion, with the superior one in the base of the coracoid. Once this was found to have adequate fixation, attention was turned back to the humerus. The humerus was broached up to size 8, which was found to be rotationally and vertically stable. Trial components were then placed along with a 36+ 4 trial Glenosphere. The patient had good range of motion, there was no instability and just good tightness on both the deltoid and conjoined tendon, with no signs of overstuffing. At this time, this was dislocated. A 36+ 4 mm Glenosphere was then impacted into place and a size 8 stem with a 135-degree cup was then placed with a 3 mm liner. This was then reduced. Patient's shoulder was brought through range of motion, was found to be in adequate position on C- arm fluoroscopy. 1 L dilute Betadine solution was then irrigated through the incision along with 3 L pulse lavage irrigation with Ancef. Topical tranexamic acid as well as vancomycin powder was placed. The deltopectoral interval was then tagged using 2-0 FiberWire. 2-0 Vicryl was used subcutaneously and Prineo was used for the skin. The patient was placed in sterile soft dressing and a pillow sling and sent to PACU in stable condition. MMODAL /[id number]
== END 2017-07-06 15:24 | disposition home or self-care (01) | DRG 315 ==
LOC: JD.MS 10:48
PROVIDERS: ADMIT Orthopaedic Surgery; ATTEND Orthopaedic Surgery
PROC: 0RRK00Z Replacement of Left Shoulder Joint with Reverse Ball and Socket Synthetic Substitute, Open Approach (ICD-10-PCS; principal; 2017-07-05)
DX: M19.012 Primary osteoarthritis, left shoulder (principal); Z96.611 Presence of right artificial shoulder joint; Z96.653 Presence of artificial knee joint, bilateral; Z87.891 Personal history of nicotine dependence; Z88.1 Allergy status to other antibiotic agents
CPT/HCPCS: 01638; 36415; 64415; 76000; 76000-26; 80053; 85027; 87641; 97110-GP; 97140-GP; 97161-GP; 97165-GO; 97535-GO; A9270-GY; C1713; C1776; J0171; J0690; J1100; J1885; J2250; J2704; J2710; J2795; J3010; J3370; J3490; J7120